=== PATIENT | female | born 1975 | race Caucasian/White ===

== ENCOUNTER 2025-04-23 07:26 | Inpatient (IN) | payer OTHER, SELFPAY ==
[2025-04-18 21:03] VITALS: BP 144/110
[2025-04-18 21:29] LABS: Hematocrit 36.8 % (37.0-47.0); Hemoglobin 12.2 g/dL (12.0-16.0); Mean Corp Hgb Conc. 33.2 g/dL (33.0-37.0); Mean Corpuscular Volume 86.0 fL (81.0-99.0); Nucleated Red Blood Cells % 0 %; Platelet Count 215 10^3/uL (130-400); Red Cell Dist. Width 13.9 % (11.5-14.5)
[2025-04-18 21:52] LABS: AST (SGOT) 712 U/L (14-36); Albumin 4.9 g/dl (3.5-5.0); Alkaline Phosphatase 345 U/L (38-126); Blood Urea Nitrogen 12 mg/dl (7-17); Calcium 9.8 mg/dl (8.4-10.2); Carbon Dioxide 19 mmol/L (22-30); Chloride 105 mmol/L (98-107); Glucose 125 mg/dl (70-99); Lipase 212 U/L (23-300); Potassium 4.4 mmol/L (3.5-5.1); Sodium 138 mmol/L (135-145); Total Protein 8.2 g/dl (6.3-8.2); eGFR > 60.00
[2025-04-18 22:09] LABS: ALT (SGPT) 1391 U/L (0-35)
--- NOTE | 2025-04-18 22:26 | ED.GENMED ---
History of Present Illness
General
Chief Complaint: Abdominal Pain
Source: patient
Exam Limitations: none
Time Seen by Provider: 04/18/25 22:03
History of Present Illness
History of Present Illness:
36yoF with history of recently diagnosed diabetes, prior cholecystectomy, and prior pancreatitis after ERCP presenting for evaluation of abdominal pain. She has been having intermittent epigastric pain for the past month. Pain became constant 2
days ago and is 'unrelenting.' Pain is worse after eating and laying down. Symptoms feel similar to when she's had pancreatitis in the past. She also is experiencing nausea and decreased appetite. She went to her PCP yesterday who ordered labs
and an ultrasound but she has not received the results of this yet. Patient denies any fevers, chills, vomiting, diarrhea, urinary symptoms, chest pain, shortness of breath.
Phy Exam
General Physical Exam
General Presentation: well appearing and no apparent distress
General Skin: warm and dry
General Habitus: normal
General Mental: alert
ENT Exam
ENT Exam: normocephalic
Cardiovascular Exam
Cardiovascular Exam: regular rate/rhythm
Pulmonary Exam
Pulmonary Exam: lungs clear, no respiratory distress, no rales, no crackles, no rhonchi and no wheezing
Gastrointestinal Exam
Gastrointestinal Exam: non tender, soft, non distended and other (No reproducible tenderness on exam)
Neurological Exam
Neurological Exam: alert
Husam Coma Scale
Eye Opening: Spontaneous
Verbal Response: Oriented
Motor Response: Obeys Commands
GCS Total Score: 15
Skin Exam
Skin Exam: normal color and warm/dry
Psychiatric Exam
Psychiatric Exam: normal mood/affect
Course
Orders/Labs/Results
Orders:
Orders
04/18/25 21:19
Complete Blood Count/With Diff Urgent
Comprehensive Metabolic Panel Urgent
Lactic Acid Urgent
Lipase Urgent
04/18/25 22:24
0.9% Sodium Chloride 1000 ml [Nss] 1,000 ml IV BOLUS
HYDROmorphone [Dilaudid] 0.5 mg IV NOW STA
Ondansetron Injectable [Zofran] 4 mg IV NOW STA
US Abdomen Complete/Upper Urgent
Comment:
Reason For Exam: epigastric pain, transaminitis
04/18/25 22:25
Electrocardiogram (*1) Urgent
Reason for Study: Abdominal Pain
EKG- Treatment ONCE
04/18/25 23:40
Prothrombin Time Urgent
Troponin I Urgent
Abnormal Lab Results
04/18/25
21:19
Hct 36.8 L %
(37.0-47.0)
MPV 10.8 H fL
(7.4-10.4)
Absolute Monos (auto) 0.7 H 10^3/uL
(0.1-0.6)
Monocytes % 10.1 H %
(1.7-9.3)
Carbon Dioxide 19 L mmol/L
(22-30)
Glucose 125 H mg/dl
(70-99)
Total Bilirubin 3.1 H mg/dl
(0.2-1.3)
AST 712 H* U/L
(14-36)
ALT 1391 H* U/L
(0-35)
Alkaline Phosphatase 345 H U/L
(38-126)
04/18/25 21:19
04/18/25 21:19
Vital Signs
Initial and Last Documented VS:
Initial Vital Signs
Temp Pulse Resp BP Pulse Ox
98.5 F 132 18 144/110 98
04/18/25 21:03 04/18/25 21:03 04/18/25 21:03 04/18/25 21:03 04/18/25 21:03
Last Documented Vital Signs
Temp Pulse Resp BP Pulse Ox
98 F 87 18 129/94 97
04/19/25 00:00 04/19/25 00:00 04/18/25 21:03 04/18/25 23:42 04/19/25 00:00
MDM/Problems Addressed
Differential Diagnosis Includes:
49yoF here with epigastric pain. Feels similar to prior bout of pancreatitis. Hx of prior cholecystectomy. HR 132 in triage. Temp normal. Abdominal exam relatively benign. Differential diagnosis includes but is not limited to: Pancreatitis, peptic
ulcer disease, choledocholithiasis, consider ACS
Initial ED plan: Labs obtained in triage. Transaminitis noted with AST 712, ALT 1391, and total bilirubin of 3.1. Lipase within normal limits. Will check troponin/EKG and upper abdominal ultrasound. IV Dilaudid, Zofran, and fluid bolus for
symptoms.
*Pulse Oximetry
SaO2: 98
Oxygen Mode of Delivery: Room air
Patient hypoxic: no (98%)
*EKG
Interpreted by ED Provider?: Yes
EKG Intrepretation Date: 04/19/25
Heart Rate: 94
Rate: normal
Rhythm: sinus
[place]: normal axis
Interval: normal interval
QRS Pattern: normal QRS
Ischemia: no ischemia
*Critical Care Note
Total Time (30-74mins, 75-104mins- exclusive of procedures): Not Applicable
Update Note
Update Note:
Ultrasound shows dilated CBD and mild intrahepatic ductal dilation. Concern for choledocholithiasis. Will admit for MRCP and GI consult.
ED Attending Note
-
Portions of this chart may have been created with voice recognition software.� Occasional wrong word or��sound alike� substitutions may have occurred due to the inherent limitations of voice recognition software.
Discharge Plan
Departure
Patient Disposition: Admit
Date of Disposition: 04/19/25
Time of Disposition: 00:00
Presentation/result/management discussed w/ accepting MD/DO: Hospitalist
Discharge Problem:
Epigastric abdominal pain, Transaminitis
Referrals:
Seun Moncada MD [Family Provider, Internal Medicine]
Interventions
Interventions:
*Risk Screen - Suicide Last Done: 04/18/25 23:57
*General Assessment Last Done: 04/18/25 21:03
*Neglect/Abuse Screening Last Done: 04/18/25 23:57
*ED- Fall Risk Assessment Last Done: 04/18/25 23:57
*ED COVID-19 Vaccine History Last Done: 04/18/25 23:57
MT-Rsywki-Dgstibwwfw Assessment Last Done: 04/18/25 23:57
Discharge Date and Time
Print Language: LUXEMBOURGISH
[2025-04-18 23:42] VITALS: BP 129/94
[2025-04-18] MEDS: NSS 1000 IV (23:46)
[2025-04-18] MEDS: DILAUDID 0.5 MG IV (23:47)
[2025-04-18] MEDS: ZOFRAN 4 MG IV (23:48)
[2025-04-18 23:57] VITALS: BMI 26.8
[2025-04-19] VITALS (8 sets, daily range): BP systolic 127–151; BP diastolic 83–100; BMI 25.9
[2025-04-19 00:08] LABS: INR 1.03; PT 14.0 Sec (11.4-14.6)
--- NOTE | 2025-04-19 00:18 | HPS.HSE ---
Family Physician
-
Family Physician: Seun Moncada
Chief Complaint
-
Epigastric abdominal pain
History of Present Illness
This is a 49-year-old female with history of cholecystitis status post cholecystectomy, history of ERCP was complicated by ERCP pancreatitis with development of pseudocyst about 12 years ago who presents to the emergency department with epigastric
abdominal pain that has been going on for about 1-1/2 months.
Patient reports intermittent epigastric pain that appears to radiate into her chest. She does note some indigestion. She denies any association with food intake. She reports nausea but no vomiting. She is not having any diarrhea. She denies any
melena. She denies feeling dizzy or lightheaded. She is not on any NSAIDs. She denies any Tylenol use. She stated that she was recently started on metformin less than 3 months ago for elevated blood glucose. She was also just started on
Protonix for current symptoms of indigestion. She denies any changes in color of her urine. She denies any icteric sclera or jaundice.
In the emergency department she was afebrile, blood pressure was 130/94 with a pulse of 87 she was satting 97% on room air.
CBC was unremarkable, electrolyte BUN/creatinine were normal. AST 712 ALT 09/15/1990, total bilirubin 3.1, alk phos present 300, lipase was normal.
Ultrasound shows dilated common bile duct measuring up to 16 mm with mild intrahepatic ductal dilation. No ductal stone was visualized however the distal ductal region and pancreatic head region were not well-visualized.
Medical History
Past Medical History
Past Medical History: Reports NIDDM
Past Surgical History: Reports Cholecystectomy
Social History
Tobacco: Non-smoker
Alcohol: None
Drug: None
Personal:
Living: With Family
Family History
Family History: Not pertinent
Allergies / Home Medications
Allergies reflects when Allergies were last updated in [facility].
Home Medications with original date entered in [facility]
Allergy/Medication List:
Allergies
Allergy/AdvReac Type Severity Reaction Status Date / Time
No Known Allergies Allergy Unverified 04/18/25 21:03
Protonix 40 mg tablet, 40 mg p.o. daily
Metformin 500 mg tablet, 500 mg p.o. daily
Review of Systems
-
Constitutional: Reports No Symptoms
EENT: Reports No Symptoms
Respiratory: Reports No Symptoms
Cardiac: Reports No Symptoms
Abdomen/GI: Reports Abdominal Pain and Nausea
: Reports No Symptoms
Musculoskeletal: Reports No Symptoms
Skin: Reports No Symptoms
Neurological: Reports No Symptoms
Endocrine: Reports No Symptoms
Hematologic/Lymphatic: Reports No Symptoms
Psych: Reports No Symptoms
Physical Exam
Vital Signs
Vital Signs
Temp Pulse Resp BP Pulse Ox
98 F 87 18 129/94 97
04/19/25 00:00 04/19/25 00:00 04/18/25 21:03 04/18/25 23:42 04/19/25 00:00
Physical Exam
General: Well Developed, Well Nourished and No Apparent Distress
HEENT: NormoCephalic, Moist mucous membranes and Atraumatic
Respiratory: Clear
Cardiac: S1/S2 and Regular Rhythm; No Murmur or Rub
GI: Soft, Non Tender, Non Distended and Normal Bowel Sounds; No Organomegaly
Rectal: Deferred by Provider
Musculoskeletal: No Clubbing, No Cyanosis and No Edema
Skin: No Rash
Neuro: Nonfocal/grossly intact
Psych: Calm
Laboratory Results
-
04/18/25 21:19
04/18/25 21:19
Laboratory Results
PT 14.0 Sec (11.4-14.6) 04/18/25 23:40
INR 1.03 04/18/25 23:40
Lactic Acid 1.0 mmol/L (0.7-2.0) 04/18/25 21:19
Total Bilirubin 3.1 mg/dl (0.2-1.3) H 04/18/25 21:19
AST 712 U/L (14-36) H* 04/18/25 21:19
ALT 1391 U/L (0-35) H* 04/18/25 21:19
Alkaline Phosphatase 345 U/L (38-126) H 04/18/25 21:19
Lipase 212 U/L (23-300) 04/18/25 21:19
Data Reviewed
-
Ultrasound: Report Reviewed by me
Lab Data: Labs Reviewed by me
Old Records: Reviewed
Impression/Plan
-
IMPRESSION:
49-year-old coming with epigastric abdominal pain and found to have elevated liver enzymes and bilirubin. She is status post cholecystectomy several years ago complicated by ERCP with pancreatitis and pseudocyst formation. She reports
approximately 1 month of intermittent epigastric pain, transaminitis here shows AST of 712 ALT of over 1000 and T. bili Milo of 3.1. Lipase was normal. She does not drink alcohol. Ultrasound shows significantly dilated common bile duct as well
as mild intrahepatic ductal dilation. No stones noted on that image.
PLAN:
Choledocholithiasis -likely has epigastric pain on the basis of this choledocholithiasis versus biliary stricture
-Admit to MedSurg
-Clear liquid diet for now
-Pain control and antiemetic
-Continue PPI
-Trend LFTs
-MRCP
-GI consult
Diabetes
-Holding metformin for now
-Sliding scale insulin ACHS
DVT prophylaxis�Lovenox subcu
CODE STATUS�full code
[2025-04-19 00:21] LABS: Troponin I < 0.012 ng/ml
--- NOTE | 2025-04-19 01:30 | PTCARENOTE ---
Patient arrived from ED via stretcher. Patient aaox3, able to make needs known. IV flushed and patent.
[2025-04-19 01:41] LABS: Glucose - Point of Care 94 mg/dl (70-99)
[2025-04-19] MEDS: NSS (PRESERVATIVE FREE) 8 ML IV (01:58)
[2025-04-19] MEDS: D5/0.45%NACL 1000 IV ×2 (01:58→19:25)
[2025-04-19] MEDS: PEPCID 20 MG IV (01:59)
[2025-04-19] MEDS: DILAUDID 0.5 MG IV ×4 (06:23→20:49)
[2025-04-19 06:37] LABS: Hematocrit 31.7 % (37.0-47.0); Hemoglobin 10.6 g/dL (12.0-16.0); Mean Corp Hgb Conc. 33.4 g/dL (33.0-37.0); Mean Corpuscular Volume 86.6 fL (81.0-99.0); Platelet Count 181 10^3/uL (130-400); Red Cell Dist. Width 13.8 % (11.5-14.5)
[2025-04-19 06:59] LABS: Glucose - Point of Care 121 mg/dl (70-99)
[2025-04-19 07:06] LABS: Blood Urea Nitrogen 7 mg/dl (7-17); Calcium 8.7 mg/dl (8.4-10.2); Carbon Dioxide 20 mmol/L (22-30); Chloride 108 mmol/L (98-107); Estimated Creatinine Clearance 79 ml/min; Glucose 114 mg/dl (70-99); Magnesium 1.7 mg/dl (1.6-2.3); Potassium 4.0 mmol/L (3.5-5.1); Sodium 138 mmol/L (135-145); eGFR > 60.00
[2025-04-19] MEDS: ATIVAN 0.5 MG PO (08:02)
--- NOTE | 2025-04-19 11:00 | CM ---
Addendum entered by Randal Sainz 04/19/25 13:00:
OBS status noted. OBS letter reviewed with the pt, pt declined to sign, has a copy. OBS letter placed on chart.
Original Note:
CM following re: discharge planning.
Reviewed pt's chart, met with pt and pt's at bedside.
Pt is a 49 year old female, admitted with primary dx of Abdominal pain.
Pt reports she lives with 2SH, 2 steps to enter, has 5 supportive children. Pt described herself as independent in all areas [employer], drives, works.
PCP: Seun Moncada
Pharmacy: [facility].
D/C plan: home with anticipated no needs. to transport at discharge.
CM will follow with discharge plan updates as hospitalization progresses
[2025-04-19] MEDS: NOVOLOG FLEXPEN-LOW RESISTANCE SC ×2 (11:52→12:13)
[2025-04-19 12:14] LABS: Glucose - Point of Care 109 mg/dl (70-99)
[2025-04-19] MEDS: PROTONIX 40 MG PO (12:14)
--- NOTE | 2025-04-19 13:11 | W.PN.UPDATE ---
Update Note
Progress Note Update
Hospitalist H&P from 0018 this morning. I have reviewed the patient's chart and independently evaluated her at the bedside. I spoke with her family and provided updates
49-year-old female with new NIDDM, history of ERCP induced pancreatitis C/B pseudocyst, s/p laparoscopic cholecystectomy that presented to the hospital yesterday with a complaint of epigastric pain over the last 1 month. Denies other associated
symptoms. Was recently diagnosed with new onset type 2 diabetes with A1c 7.2%. AFVSS here. Upon arrival had labs that showed AST 712, ALT 1370, total bilirubin 3.1, ALP 345. Underwent MRCP that demonstrated abrupt caliber transition of the CBD
in the superior aspect of the pancreatic head which is concerning for pancreatic carcinoma versus changes of chronic pancreatitis, also demonstrated lesions within the inferior posterior right lobe of the liver suspicious for metastases. Ultrasound
abdomen with Doppler negative for signs of Budd-Chiari.
AO x 4, NAD, no FND. Cardiopulmonary exam benign, abdomen benign. No edema, palpable pulses, no rashes or jaundice. MMM, EOMI, no scleral icterus.
Suspected pancreatic carcinoma. MRCP/abdomen MRI with abrupt transition of the CBD near pancreatic head, as well as signs of liver metastasis. Will consult oncology for further guidance on tissue biopsy. Suspect liver would be more feasible
target if lesion large enough to sample. Likely will need IR on board. Ultimately will need repeat microscopy, order CEA, CA 19-9, CA125
Acute liver injury. R factor near 12 though likely multi mixed picture with partial obstruction from pancreatic mass lesion as well as hepatocellular injury from metastasis. Ordered hepatitis panel for completeness, will follow-up results. Trend
LFTs and INR, avoid hepatotoxins
New NIDDM. A1c 7.2%. Suspect this may be related to primary pancreatic process such as neoplasm. Currently on ISS and Accu-Cheks here.
CLD for now
SQ Lovenox
Full code
Expected discharge >48 hours
--- NOTE | 2025-04-19 15:56 | CON.GI ---
Addendum entered and electronically signed by Delores Malone MD 04/19/25 17:22:
I saw and examined the patient.
The CONTINUOUS ABSORPTION PROCESS OPERATOR or PA's note was reviewed and I agree with the note.
Comment: 49-year-old female with history of choledocholithiasis status post ERCP 12 years ago at [facility], post ERCP pancreatitis and pseudocyst needing TPN at that time, history of cholecystectomy, new onset diabetes a month ago presenting with
complaints of dull epigastric discomfort intermittently in the last month but constantly in the last 3 days, no radiation. Some nausea but no vomiting. No GERD symptoms except on occasion, takes Tums as needed, no trouble swallowing. History of
chronic soft mushy/loose stool for several years, reports having colonoscopy a year ago or so at [facility] and unremarkable as per patient. She does report losing about 6 pounds in the last month. Social alcohol use, non-smoker.
In the ER, noted to have total bilirubin of 3.1, AST of 712, ALT of 3091 and alkaline phosphatase of 345
Abdominal ultrasound showing enlarged common duct to about 1.6 cm and possible mild intrahepatic biliary ductal dilation.
Subsequent noncontrast MRI/MRCP showing diffuse intrahepatic biliary ductal dilation, dilation of cystic duct remnant, common hepatic duct, superior aspect of common bile duct measuring up to 17 mm, abrupt transition of the common bile duct in the
superior aspect of the pancreatic head concerning for neoplasm. Lesion in the inferior posterior right lobe of the liver suspicious for hepatic metastatic lesion. Atrophy of the right kidney.
- Epigastric pain, elevated LFTs and MRI showing new biliary/pancreatic ductal dilation concerning for neoplasm
Will do MRI of the abdomen with and without contrast to evaluate it further
Noted labs sent for CEA, CA 19�9 and CA125
Oncology consulted
Will follow-up on the MRI and eventually will need EUS/FNA
Discussed with patient and .
Okay for clear liquid diet
Original Note:
Consultation
-
Date/Time Consultation Requested: 04/19/25 0130
Date/Time Consultation Performed: 04/19/25 1530
Requesting Provider: Dr. Ruelas
Performing Provider: Dr. Malone/MARIAN Griffiths
Reason for Consultation: abd pain, elevated LFTs
Medical History
Chief Complaint / HPI
Chief Complaint: abd pain
History of Present Illness:
49-year-old female with past medical history of choledocholithiasis status post ERCP 12 years ago at [facility] with subsequent pancreatitis and development of pseudocyst, followed by cholecystectomy, rare GERD, ocular hypertension newly diagnosed as
well as newly diagnosed diabetes with recently starting metformin approximately 1 month ago who is to the emergency room with approximately 6-week history of intermittent epigastric discomfort. The patient was found to have elevation of LFTs.
Combination of the symptoms we are asked to evaluate for the same. The patient states that prior to this she was otherwise healthy in between the episode of choledocholithiasis and ERCP with pseudocyst. She states during that time she was in the
hospital and required TPN. After that she had no imaging or follow-up. She never had any significant issues or pain. She states that intermittently she would have a mild epigastric discomfort on a rare occasion. She has rare GERD for which she
would use Tums alleviate symptoms. She also has 'self diagnosed IBS' she would get a nervous stomach and would have loose stools however this has been lifelong preceding her cholecystectomy. She had a colonoscopy 1 year ago with a physician
affiliated with [facility] and states it was normal with a repeat recommended in 10 years. She states that she had a routine eye exam and it was diagnosed that she had ocular hypertension. She states shortly thereafter she was diagnosed
with diabetes. States her blood sugars were never 'creeping up'. Just became elevated. She also has had intermittent epigastric discomfort that was 'deep', intermittent, did not radiate through to the back that has been ongoing for the past 6
weeks. He has lost approximately 6 pounds however it attributes this with changing her diet. She denies any fevers, chills, nausea, vomiting, melena, hematochezia, dysphagia or odynophagia. Denies any chest pain, shortness of breath, dizziness or
lightheadedness. She does not smoke. She drinks 1 or 2 alcoholic beverages on the weekends. Other than metformin she takes no other medications.
Past Medical History
Past Medical History: NIDDM and Other (ocular HT, choledocholithiasis, post ERCP pancreatitis, pancreatic pseudocyst)
Past Surgical History: Other (ERCP, cholcystectomy)
Social History
Tobacco: Non-Smoker
Alcohol: Occasional
Drug: None
Personal:
Living: With Family
Allergies / Home Medications
Allergy/AdvReac Type Severity Reaction Status Date / Time
No Known Allergies Allergy Unverified 04/18/25 21:03
Review of Systems
-
All other systems: A 12 pt ROS was Negative except as stated above in HPI
Vital Signs
Temp Pulse Resp BP Pulse Ox
98.7 F 85 16 139/96 100
04/19/25 07:40 04/19/25 07:40 04/19/25 07:40 04/19/25 07:40 04/19/25 07:45
Physical Exam
Exam
General: No Apparent Distress
HEENT: Anicteric
Neuro: AO x 3
Psych: Calm
Results
WBC 5.7 10^3/uL (4.8-10.8) 04/19/25 06:06
Hgb 10.6 g/dL (12.0-16.0) L 04/19/25 06:06
Hct 31.7 % (37.0-47.0) L 04/19/25 06:06
MCV 86.6 fL (81.0-99.0) 04/19/25 06:06
Plt Count 181 10^3/uL (130-400) 04/19/25 06:06
Absolute Neuts (auto) 4.3 10^3/uL (1.4-6.5) 04/18/25 21:19
PT 14.0 Sec (11.4-14.6) 04/18/25 23:40
INR 1.03 04/18/25 23:40
Sodium 138 mmol/L (135-145) 04/19/25 06:06
Potassium 4.0 mmol/L (3.5-5.1) 04/19/25 06:06
Chloride 108 mmol/L (98-107) H 04/19/25 06:06
Carbon Dioxide 20 mmol/L (22-30) L 04/19/25 06:06
BUN 7 mg/dl (7-17) 04/19/25 06:06
Creatinine 0.7 mg/dL (0.6-1.0) 04/19/25 06:06
Calcium 8.7 mg/dl (8.4-10.2) 04/19/25 06:06
Total Bilirubin 3.1 mg/dl (0.2-1.3) H 04/18/25 21:19
AST 712 U/L (14-36) H* 04/18/25 21:19
ALT 1391 U/L (0-35) H* 04/18/25 21:19
Alkaline Phosphatase 345 U/L (38-126) H 04/18/25 21:19
Lipase 212 U/L (23-300) 04/18/25 21:19
Hepatitis A IgM Ab Cancelled 04/19/25 09:00
Hepatitis A Ab Total Cancelled 04/19/25 09:00
Hep Bs Antibody Cancelled 04/19/25 09:00
Hep B Core Total Ab Cancelled 04/19/25 09:00
Hep B Core IgM Ab Cancelled 04/19/25 09:00
Hepatitis C Antibody Cancelled 04/19/25 09:00
Diagnostic Image Results:
Abd US:
IMPRESSION: Prior cholecystectomy. Enlarged common bile duct measuring at least 1.6 cm. Possible mild intrahepatic biliary tract dilatation.. Consider MRI/MRCP for more complete evaluation, especially for evaluation of the common bile duct and
pancreas.
Pancreas, abdominal aorta and IVC significantly obscured, most likely by overlying bowel gas.
Likely somewhat atrophic right kidney.
MRI abd without/MRCP:
IMPRESSION: Status post cholecystectomy.
There is diffuse intrahepatic bile duct dilation. Dilation of the cystic duct remnant, the common hepatic duct, and the superior aspect of the common bile duct, measuring up to 17 mm. Abrupt caliber transition of the common bile duct in the superior
aspect of the pancreatic head, and findings are highly concerning for pancreatic neoplasia/carcinoma. Differential consideration of changes from chronic pancreatitis, felt to be less likely.
For further evaluation, dedicated CT with pancreatic protocol could be considered, versus dedicated MRI of the abdomen/pancreas.
Lesion within the inferior posterior right lobe of the liver, suspicious for hepatic metastatic lesion. Lesion in the lateral segment of the left lobe of the liver, nonspecific.
Severe atrophy of the right kidney, probably chronic. Mild scarring involving the medial upper pole the left kidney.
Top normal lymph node in the portacaval space, nonspecific
US Abd dopplers:
Unremarkable low resistance waveform is seen in the hepatic artery.
Normal directional blood flow with normal caliber and pulsatility of the hepatic veins are seen.
Normal directional blood flow of the portal veins are seen although there is slow velocity of less than 15 cm/s.
Prior GI Procedures:
ERCP [facility] (12 yrs ago) records unavailable to us
Colonoscopy: 1 year ago (per patient was told 10 yr follow up) Records unavailable to us
Assessment / Plan
-
49-year-old female with past medical history of choledocholithiasis status post ERCP 12 years ago at [facility] with subsequent pancreatitis and development of pseudocyst, followed by cholecystectomy, rare GERD, ocular hypertension newly diagnosed as
well as newly diagnosed diabetes with recently starting metformin approximately 1 month ago who is to the emergency room with approximately 6-week history of intermittent epigastric discomfort. The patient was found to have elevation of LFTs.
Combination of the symptoms we are asked to evaluate for the same. WBC 5.7, hemoglobin 10.6, hematocrit 31.7, platelets 181, MCV 86.6, MCH 29.0, PT 14.0, INR 1.03, sodium 138, potassium 4.0, chloride 108, CO2 20, BUN 7, creatinine 0.7, glucose 114,
lactic acid 1.0, calcium 8.7, total bilirubin 3.1, AST 712, ALT 1391, alk phos 345, lipase 212, CEA pending, CA 19-9 pending, CA125 pending, viral hepatitis studies pending. Ultrasound of the abdomen showed enlarged common bile duct measuring 1.6
cm. Mild intrahepatic biliary tract dilatation. Consider MRI/MRCP. Pancreas, abdominal aorta and IVC obscured. MRI of the abdomen without contrast with MRCP shows diffuse intrahepatic bile duct dilation. Dilation of the cystic duct remnant, the
common hepatic duct, and the superior aspect of the common bile duct, measuring up to 17 mm. Abrupt caliber transition of the common bile duct in the superior aspect of the pancreatic head, and findings are highly concerning for pancreatic
neoplasia/carcinoma. Differential consideration of changes from chronic pancreatitis, felt to be less likely. Lesion within the inferior posterior right lobe of the liver, suspicious for hepatic metastatic lesion. Lesion in the lateral segment of
the left lobe of the liver, nonspecific.
Impression:
Abdominal pain
Elevated LFTs
Bile duct dilatation with abrupt cut in region of pancreatic head
Lesion in right lobe of liver and lateral left lobe liver
New onset DM
Plan:
-MRI Abd/pancreatic with contrast in am
-Will need EUS
-Await CEA, Ca19-9, Ca125
-LFTs in am
-Pain control
-Further recommendations to be forthcoming.
-
-
Thank you for consultation and allowing me to participate in the patient's care. Please call the motion picture set grip GI physician during the after hours with any questions or concerns.
[2025-04-19 16:34] LABS: Glucose - Point of Care 164 mg/dl (70-99)
[2025-04-19] MEDS: ZOFRAN 4 MG IV (17:28)
[2025-04-19] MEDS: LOVENOX 40 MG SC (17:36)
[2025-04-19] MEDS: NOVOLOG FLEXPEN-LOW RESISTANCE 1 UNITS SC (18:34)
[2025-04-19 19:19] LABS: CA 125 7.8 U/mL (0-35)
[2025-04-19 19:30] LABS: Hepatitis B Surface Antigen Negative (Negative)
[2025-04-19 19:47] LABS: Hepatitis A Antibody, Total Negative (Negative); Hepatitis C Antibody Negative (Negative)
[2025-04-19 21:10] LABS: Glucose - Point of Care 148 mg/dl (70-99)
[2025-04-20] MEDS: DILAUDID 0.5 MG IV ×5 (01:21→21:20)
[2025-04-20] MEDS: D5/0.45%NACL 1000 IV (03:15)
[2025-04-20 06:25] LABS: Hematocrit 31.7 % (37.0-47.0); Hemoglobin 10.6 g/dL (12.0-16.0); Mean Corp Hgb Conc. 33.4 g/dL (33.0-37.0); Mean Corpuscular Volume 85.9 fL (81.0-99.0); Nucleated Red Blood Cells % 0 %; Platelet Count 180 10^3/uL (130-400); Red Cell Dist. Width 13.7 % (11.5-14.5)
[2025-04-20 07:00] LABS: ALT (SGPT) 878 U/L (0-35); AST (SGOT) 295 U/L (14-36); Albumin 3.8 g/dl (3.5-5.0); Alkaline Phosphatase 301 U/L (38-126); Blood Urea Nitrogen 5 mg/dl (7-17); Calcium 9.3 mg/dl (8.4-10.2); Carbon Dioxide 24 mmol/L (22-30); Chloride 107 mmol/L (98-107); Estimated Creatinine Clearance 79 ml/min; Glucose 181 mg/dl (70-99); Potassium 3.9 mmol/L (3.5-5.1); Sodium 135 mmol/L (135-145); Total Protein 6.7 g/dl (6.3-8.2); eGFR > 60.00
[2025-04-20 07:20] VITALS: BP 121/87
[2025-04-20 07:50] LABS: Glucose - Point of Care 168 mg/dl (70-99)
[2025-04-20] MEDS: NOVOLOG FLEXPEN-LOW RESISTANCE 1 UNITS SC (08:54)
[2025-04-20] MEDS: PROTONIX 40 MG PO (08:54)
--- NOTE | 2025-04-20 10:38 | CON.ONC ---
Documented by User: Dorcas Chowdary MD, Resident 04/20/25 15:35
Consultation
-
Date Consultation Requested: 04/19/25
Date Consultation Performed: 04/20/25
Requesting Provider: Dr. Connor Russo
Performing Provider: Dr. Pato Ramirez
Reason for Consultation: Pancreatic mass, liver mass
Impression
Impression
Mid epigastric abdominal pain
Elevated LFTs
Bile duct dilatation with abrupt cut in region of pancreatic head
Lesion in right lobe of liver and lateral left lobe liver
New onset DM
Plan
Plan
-EUS possibly Wednesday - will d/c EUS if liver biopsy diagnostic
-IR has been consulted for biopsy of liver today - they will see if they can squeeze her in
-Pain control
-Follow LFTs - currently downtrending
-CA 125 7.8 (-), Carcinoembryonic and Ca 19-9 antigen pending
If GI is okay with discharging her for f/u in the outpatient setting for EUS biopsies, from heme/onc standpoint okay to go home after liver biopsy with IR.
Patient History
History of Present Illness
49-year-old female with past medical history of new onset diabetes (diagnosed in the last few weeks), cholecystitis status post cholecystectomy, history of ERCP complicated by pancreatitis with development of pseudocyst about 12 years ago presented
to the ER with midepigastric abdominal pain that had been ongoing for the last few months. She saw her PCP about it, got lab work done and was diagnosed with new onset diabetes and started on a PPI. Over the last few days, the pain became constant
and unrelenting which prompted her to come to the ER. The pain was worse after eating or laying down and she was concerned for recurrence of her pancreatitis. She has had some recent weight loss after starting the metformin and lifestyle
modification with new diagnosis of diabetes, however denied any fevers, chills, night sweats, nausea, vomiting, chest pain, shortness of breath. She did a colonoscopy 1 year ago at [facility] which she stated was normal and was told for repeat in 10
years.
In the ED, initially she was tachycardic with elevated blood pressure, however repeat vital she was afebrile and vital signs stable. WBC 6.6, hemoglobin stable 12.12, creatinine 0.9, AST 712, ALT 1391, total bilirubin 3.1. Lipase was within normal
limits. Abdominal ultrasound revealed dilated common bile duct measuring up to 16 mm with mild intra ductal dilation. She was admitted for choledocholithiasis versus biliary stricture and started on fluids. GI was consulted and MRCP was ordered.
MRCP revealed an abrupt caliber transition of the common bile duct in the superior aspect of the pancreatic head, and findings are highly concerning for pancreatic neoplasia/carcinoma. Differential consideration of changes from chronic pancreatitis,
felt to be less likely. There was also noted to be a lesion in the inferior posterior right lobe of the liver suspicious for a hepatic metastatic lesion. An abdominal MRI was subsequently ordered which revealed a 4.3 x 2.0 cm hypoenhancing mass
within the pancreatic head/body which is favored to represent pancreatic malignancy. There was also a 2.1 cm peripheral enhancing lesion within the inferior right hepatic lobe consistent with hepatic metastasis.
Carcinoembryonic and tension, CA 19-9 antigen and CA125 antigen were ordered. Hematology oncology was consulted for further evaluation of pancreatic and liver masses.
Past-Medical/Surgical History
Past medical history: ERCP pancreatitis, cholecystitis status post cholecystectomy, new onset diabetes
Past surgical history: Cholecystectomy, ERCP
Family history: Maternal grandmother pancreatic cancer diagnosed in her 80s
Patient Medication
�Medication �Instructions �Recorded �Confirmed �Last Taken �Type
alprazolam 0.25 mg tablet (Xanax) 0.25 mg PO BID PRN anxiety 04/19/25 04/19/25 Unknown History
Active Medications
Generic Name Dose Route Start Last Admin
Trade Name Freq PRN Reason Stop Dose Admin
Acetaminophen 650 mg 04/19/25 01:30
Acetaminophen 325 Mg Tablet PO 05/17/25 01:29
Q4HPRN PRN
mild pain/ALFARO/temp> 100.4F
Alprazolam 0.25 mg 04/19/25 15:56
Alprazolam 0.25 Mg Tablet PO 05/17/25 15:55
BIDPRN PRN
anxiety
Bisacodyl 10 mg 04/19/25 01:30
Bisacodyl 10 Mg Rectal Suppository RECTAL 05/17/25 01:29
[id number] PRN
constipation
Dextrose 12.5 grams 04/19/25 02:00
Dextrose 50% (0.5 Grams/Ml) 50 Ml Syringe IV 05/17/25 01:59
[id number] PRN
hypoglycemia
Protocol
Enoxaparin Sodium 40 mg 04/19/25 18:00 04/19/25 17:36
Enoxaparin Sodium 40 Mg/0.4 Ml Syringe SC 05/17/25 17:59 40 mg
QPM CLARIBEL Administration
Glucagon 1 mg 04/19/25 02:00
Glucagon 1 Mg Vial IM 05/17/25 01:59
PRN PRN
hypoglycemia - no IV access
Protocol
Hydromorphone HCl 0.5 mg 04/19/25 01:30 04/20/25 06:23
Hydromorphone 0.5 Mg/0.5 Ml Syringe IV 05/03/25 01:29 0.5 mg
Q4HPRN PRN Administration
severe pain
Insulin Aspart 0 units 04/19/25 07:30 04/20/25 08:54
Insulin Aspart Low Resistance 300 Units/3 Ml Pen.Injctr SC 05/17/25 07:29 1 units
AC CLARIBEL Administration
Protocol
Ondansetron HCl 4 mg 04/19/25 01:30 04/19/25 17:28
Ondansetron 4 Mg/2 Ml Vial IV 05/17/25 01:29 4 mg
Q6HPRN PRN Administration
nausea and vomiting
Oxycodone HCl 5 mg 04/19/25 01:30
Oxycodone 5 Mg Regular Release Tablet PO 05/03/25 01:29
Q4HPRN PRN
moderate pain
Pantoprazole Sodium 40 mg 04/19/25 08:00 04/20/25 08:54
Pantoprazole 40 Mg Delayed Release Tablet PO 05/17/25 07:59 40 mg
DAILY CLARIBEL Administration
Polyethylene Glycol 17 grams 04/19/25 01:30
Polyethylene Glycol Powder 17 Grams Packet PO 05/17/25 01:29
DAILYPRN PRN
constipation
Senna/Docusate Sodium 1 tablet 04/19/25 01:30
Docusate W/Senna (Nunu-Colace) Tablet PO 05/17/25 01:29
BIDPRN PRN
constipation
Sodium Chloride 0 flush 04/19/25 02:00
Sodium Chloride 0.9% (Flush) Syringe IV 05/17/25 01:59
PER PROTOCOL CALRIBEL
Review of Systems
-
History Source: Patient
EENT: Reports No Symptoms
Respiratory: Reports No Symptoms
Cardiac: Reports No Symptoms
GI: Reports Abdominal Pain
: Reports No Symptoms
Musculoskeletal: Reports No Symptoms
Neuro: Reports No Symptoms
Physical Exam
-
General: No Apparent Distress and Comfortable
Cardiology: Normal Sinus Rhythm, S1 and S2
Pulmonary: Clear
GI: Soft, Normal Bowel Sounds and Other (slight tenderness with palpation in mid-epigastric region)
Musculoskeletal: No Cyanosis and No Edema
Skin: Warm and Dry
Psych: Calm
Labs
Lab Results
WBC 6.1 10^3/uL (4.8-10.8) 04/20/25 06:14
RBC 3.69 10^6/uL (4.20-5.40) L 04/20/25 06:14
Hgb 10.6 g/dL (12.0-16.0) L 04/20/25 06:14
Hct 31.7 % (37.0-47.0) L 04/20/25 06:14
MCV 85.9 fL (81.0-99.0) 04/20/25 06:14
MCH 28.7 pg (27.0-31.0) 04/20/25 06:14
MCHC 33.4 g/dL (33.0-37.0) 04/20/25 06:14
RDW 13.7 % (11.5-14.5) 04/20/25 06:14
Plt Count 180 10^3/uL (130-400) 04/20/25 06:14
MPV 11.1 fL (7.4-10.4) H 04/20/25 06:14
Abs Immat Gran (auto) 0.0 10^3/uL (0-0.05) 04/20/25 06:14
Absolute Neuts (auto) 4.5 10^3/uL (1.4-6.5) 04/20/25 06:14
Absolute Lymphs (auto) 0.9 10^3/uL (1.2-3.4) L 04/20/25 06:14
Absolute Monos (auto) 0.6 10^3/uL (0.1-0.6) 04/20/25 06:14
Absolute Eos (auto) 0.1 10^3/uL (0-0.7) 04/20/25 06:14
Absolute Basos (auto) 0.0 10^3/uL (0-0.2) 04/20/25 06:14
Immature Gran % 0.3 % (0-0.5) 04/20/25 06:14
Neutrophils % 73.3 % (42.2-75.2) 04/20/25 06:14
Lymphocytes % 14.1 % (20.5-51.1) L 04/20/25 06:14
Monocytes % 10.0 % (1.7-9.3) H 04/20/25 06:14
Eosinophils % 2.0 % (0-6) 04/20/25 06:14
Basophils % 0.3 % (0-2) 04/20/25 06:14
Creatinine 0.7 mg/dL (0.6-1.0) 04/20/25 06:14
Vital Signs
Vital Signs
Temp Pulse Resp BP Pulse Ox
98.5 F 84 16 121/87 98
04/20/25 07:20 04/20/25 07:20 04/20/25 07:20 04/20/25 07:20 04/20/25 07:20

Documented by User: Pato Ramirez MD 04/20/25 16:43
Plan
Plan
-EUS possibly Wednesday - will d/c EUS if liver biopsy diagnostic
-IR has been consulted for biopsy of liver today - they will see if they can squeeze her in
-Pain control
-Follow LFTs - currently downtrending
-CA 125 7.8 (-), Carcinoembryonic and Ca 19-9 antigen pending
If GI is okay with discharging her for f/u in the outpatient setting for EUS biopsies, from heme/onc standpoint okay to go home after liver biopsy with IR.
04/20: Unfortunate picture of apparent pancreatic cancer, most likely stage IV with liver involvement. She has had a suspicious liver lesion biopsy this afternoon. As such, I doubt if an EUS will add much, although obviously we will have to wait for
the results of the liver biopsy. Nevertheless, her bilirubin is minimally elevated, and it does appear that the common duct is dilated, so will defer to GI, it appears that she may need ERCP with possible stent placement. I discussed all of these
findings with her and her . We discussed in very general terms the possibility of chemotherapy. However, I emphasized that no firm plans can be made until the results of the biopsy have returned. We will follow-up in the office, but it
will be important for GI to coordinate a possible ERCP.
--- NOTE | 2025-04-20 11:40 | W.PN.HOSP.TC ---
Today's Communication/Plan
-
IR liver biopsy today
Trend LFTs
Resume diet following biopsy
Assessment / Plan
Assessment / Plan
#Pancreas mass with likely liver met
#Acute liver injury, hepatocellular dominant
-Presented with ALI, epigastric pain, recent weight loss of 6 pounds in multiple week
-MRI/MRCP with and without contrast showing pancreatic head mass and likely liver metastasis
-GI and oncology following, planning for liver biopsy today for tissue diagnosis
-If liver biopsy does not achieve diagnosis may need EUS/ERCP with biopsy
-LFTs currently downtrending with supportive care, symptomatically stable
-Follow-up liver biopsy results and plan molecular studies (K-oriana, p53, SMAD, others)
-Will likely need OP staging with PET/CT, possible brain MRI
-N.p.o. pending liver biopsy today
-Trend LFTs and avoid hepatotoxins
#NIDDM
-A1c 7.2%, recent diagnosis that was puzzling to OP providers
-Suspect that this is related to pancreatic mass and parenchymal destruction
-Home regimen includes metformin, transition to ISS with Accu-Cheks here
#Anxiety
-Continue with home Xanax as needed
Diet: N.p.o. pending liver biopsy
DVT prophylaxis: SQ Lovenox
CODE STATUS: Full code
Disposition: Home when medically stable
Anticipated Discharge: 24 - 48 hours
Subjective/Interval History
-
Date of Service: April 20, 2025
Seen and examined at bedside. No acute events per overnight. AFVSS this morning
MRI with contrast redemonstrated likely pancreatic mass. LFTs downtrending
Patient otherwise denies complaints. Reasonably anxious
Objective Data
-
Labs:
Laboratory Results
04/20/25
06:14
WBC 6.1
Hgb 10.6 L
Hct 31.7 L
Plt Count 180
Sodium 135
Potassium 3.9
Chloride 107
Carbon Dioxide 24
BUN 5 L
Creatinine 0.7
Glucose 181 H
Calcium 9.3
Total Bilirubin 2.9 H
AST 295 H
ALT 878 H*
Alkaline Phosphatase 301 H
Vital Signs:
Vital Signs
Temp Pulse Resp BP Pulse Ox
98.5 F 84 16 121/87 98
04/20/25 07:20 04/20/25 07:20 04/20/25 07:20 04/20/25 07:20 04/20/25 07:20
I&O
04/19/25 04/20/25 04/21/25
06:59 06:59 06:59
Intake Total 480 / 480 2526 / 2526 240 / 240
Balance 480 / 480 2526 / 2526 240 / 240
Review of Systems
-
History Source: Patient
All other systems: Reviewed and negative
Physical Exam
-
General: Well Developed, No Apparent Distress and Comfortable
HEENT: Normocephalic, Atraumatic, Moist Mucous Membranes and Anicteric
Respiratory: Clear to Auscultation and Non Labored Respirations; Negative Accessory Resp Muscle Use
Cardiac: Regular Rhythm and S1/S2; Negative Murmur, Rub or Gallop
GI: Soft, Nontender, Nondistended and Normal Bowel Sounds
Musculoskeletal: No Clubbing, No Cyanosis and No Edema
Skin: Warm and Dry; Negative Rash
Neuro: AO x 3 and Nonfocal/Grossly Intact; Negative Central Nerve's Intact
Psych: Calm
Data Reviewed
-
Labs: Labs Reviewed by me and Discussed with Patient
--- NOTE | 2025-04-20 12:17 | W.PN.GI.CBS2 ---
Today's Communication / Plan
-
oncology eval
IR eval bx of liver lesion
EUS/ERCP next week with
Assessment / Plan
-
49-year-old female with history of choledocholithiasis status post ERCP 12 years ago at [facility], post ERCP pancreatitis and pseudocyst needing TPN at that time, history of cholecystectomy, new onset diabetes a month ago presenting with complaints of
dull epigastric discomfort intermittently in the last month but constantly in the last 3 days, no radiation. Some nausea but no vomiting. No GERD symptoms except on occasion, takes Tums as needed, no trouble swallowing. History of chronic soft
mushy/loose stool for several years, reports having colonoscopy a year ago or so at [place] and unremarkable as per patient. She does report losing about 6 pounds in the last month. Social alcohol use, non-smoker.
In the ER, noted to have total bilirubin of 3.1, AST of 712, ALT of 3091 and alkaline phosphatase of 345
Abdominal ultrasound showing enlarged common duct to about 1.6 cm and possible mild intrahepatic biliary ductal dilation.
Subsequent noncontrast MRI/MRCP showing diffuse intrahepatic biliary ductal dilation, dilation of cystic duct remnant, common hepatic duct, superior aspect of common bile duct measuring up to 17 mm, abrupt transition of the common bile duct in the
superior aspect of the pancreatic head concerning for neoplasm. Lesion in the inferior posterior right lobe of the liver suspicious for hepatic metastatic lesion. Atrophy of the right kidney.
- Epigastric pain, elevated LFTs and MRI showing new biliary/pancreatic ductal dilation concerning for neoplasm
MRI abd with contrast 04/19/2025
IMPRESSION:
There is a 4.3 x 2.0 cm hypoenhancing mass within the pancreatic head/body which is favored to represent pancreatic malignancy (adenocarcinoma). Recommend EUS/FNA for further evaluation.
There is a 2.1 cm peripheral enhancing lesion within the inferior right hepatic lobe consistent with hepatic metastasis. There are 2 smaller additional foci of diffusion hyperintense signal within the right hepatic lobe which are concerning for
additional metastatic foci, however there are no definite lesions identified on postcontrast imaging.
- Oncology eval. oncology recommendation on IR guided biopsy of liver lesion
-CEA, CA 19�9 and CA125 Pending
- EUS/ERCP with decompression with Dr. Matias next or Wednesday
-Okay to continue liquid diet over the weekend
- trend LFT
Total Time Spent with Patient (in minutes): 35
Subjective
Subjective
Date of Service: April 20, 2025
Mild abdominal discomfort. Denies any nausea or vomiting
Objective
Data Reviewed
Laboratory Data:
Laboratory Results
04/20/25 06:14
04/20/25 06:14
Laboratory Results
PT 14.0 Sec (11.4-14.6) 04/18/25 23:40
INR 1.03 04/18/25 23:40
Magnesium 1.7 mg/dl (1.6-2.3) 04/19/25 06:06
Total Bilirubin 2.9 mg/dl (0.2-1.3) H 04/20/25 06:14
AST 295 U/L (14-36) H 04/20/25 06:14
ALT 878 U/L (0-35) H* 04/20/25 06:14
Alkaline Phosphatase 301 U/L (38-126) H 04/20/25 06:14
Lipase 212 U/L (23-300) 04/18/25 21:19
Vital Signs and I&O:
Vital Signs
Temp Pulse Resp BP Pulse Ox
98.5 F 84 16 121/87 98
04/20/25 07:20 04/20/25 07:20 04/20/25 07:20 04/20/25 07:20 04/20/25 07:20
I&O
04/19/25 04/20/25 04/21/25
06:59 06:59 06:59
Intake Total 480 / 480 2526 / 2526 240 / 240
Balance 480 / 480 2526 / 2526 240 / 240
Physical Exam
Physical Exam
GI: Soft, Non Distended and Non Tender
[2025-04-20 12:48] LABS: Glucose - Point of Care 139 mg/dl (70-99)
[2025-04-20] MEDS: NOVOLOG FLEXPEN-LOW RESISTANCE SC ×2 (12:48→17:14)
[2025-04-20] MEDS: XANAX 0.25 MG PO (13:26)
[2025-04-20 13:50] VITALS: BP 149/94; BP_SYST 84
[2025-04-20 15:55] VITALS: BP 129/86; BP_SYST 82
[2025-04-20 16:30] VITALS: BP 147/89
[2025-04-20 17:00] VITALS: BP 139/84
[2025-04-20] MEDS: LOVENOX 40 MG SC (17:01)
[2025-04-20 17:09] LABS: Glucose - Point of Care 137 mg/dl (70-99)
--- NOTE | 2025-04-20 17:31 | PTCARENOTE ---
Pt received back s/p liver biopsy in [facility]. AAOx3. VSS. RUQ of abdomen with band-aid over access site. CDI. No sign of bleeding/hematoma at site. Pt educated about bedrest orders with bathroom privileges. Bedrest over at 1900. Pt resting in bed, call
booker in reach.
[2025-04-20 19:32] LABS: CEA 8.84 ng/ml
[2025-04-20] MEDS: FLUSH (NSS) 2 FLUSH IV (21:20)
[2025-04-20 21:26] LABS: Glucose - Point of Care 119 mg/dl (70-99)
[2025-04-20 23:00] VITALS: BP 123/88
[2025-04-21] MEDS: DILAUDID 0.5 MG IV (03:17)
[2025-04-21] MEDS: FLUSH (NSS) 2 FLUSH IV ×2 (03:18→03:30)
[2025-04-21] MEDS: ZOFRAN 4 MG IV (03:30)
[2025-04-21 07:04] LABS: Hematocrit 34.7 % (37.0-47.0); Hemoglobin 11.6 g/dL (12.0-16.0); Mean Corp Hgb Conc. 33.4 g/dL (33.0-37.0); Mean Corpuscular Volume 86.8 fL (81.0-99.0); Nucleated Red Blood Cells % 0 %; Platelet Count 215 10^3/uL (130-400); Red Cell Dist. Width 13.9 % (11.5-14.5)
[2025-04-21 07:12] LABS: INR 1.03; PT 13.8 Sec (11.4-14.6)
[2025-04-21] MEDS: MIRALAX 17 GRAMS PO (07:14)
[2025-04-21] MEDS: PROTONIX 40 MG PO (07:14)
[2025-04-21] MEDS: TYLENOL 650 MG PO ×3 (07:18→18:07)
[2025-04-21 07:21] VITALS: BP 122/95
[2025-04-21 07:47] LABS: AST (SGOT) 304 U/L (14-36); Albumin 4.5 g/dl (3.5-5.0); Alkaline Phosphatase 383 U/L (38-126); Blood Urea Nitrogen 6 mg/dl (7-17); Calcium 9.6 mg/dl (8.4-10.2); Carbon Dioxide 22 mmol/L (22-30); Chloride 107 mmol/L (98-107); Estimated Creatinine Clearance 79 ml/min; Glucose 119 mg/dl (70-99); Potassium 4.5 mmol/L (3.5-5.1); Sodium 138 mmol/L (135-145); Total Protein 7.7 g/dl (6.3-8.2); eGFR > 60.00
[2025-04-21 07:49] LABS: Glucose - Point of Care 125 mg/dl (70-99)
[2025-04-21 08:01] LABS: ALT (SGPT) 877 U/L (0-35)
[2025-04-21] MEDS: NOVOLOG FLEXPEN-LOW RESISTANCE SC ×2 (08:03→12:19)
[2025-04-21] MEDS: XANAX 0.25 MG PO (08:23)
--- NOTE | 2025-04-21 10:22 | W.PN.HOSP.TC ---
Today's Communication/Plan
-
Follow-up liver biopsy pathology
Plan for ERCP/EUS with biopsy Wednesday
LRD today, FLD tomorrow, n.p.o. Wednesday night
Trend LFTs
Assessment / Plan
Assessment / Plan
#Pancreas mass with likely liver met
#Acute liver injury, hepatocellular dominant
-Presented with ALI, epigastric pain, recent weight loss of 6 pounds in multiple week
-MRI/MRCP with and without contrast showing pancreatic head mass and likely liver metastasis
-GI and oncology following, s/p liver biopsy on 04/20, pathology pending
-LFTs currently downtrending with supportive care, symptomatically stable
-Follow-up liver biopsy results and plan molecular studies (K-oriana, p53, SMAD, others)
-Plan for ERCP/EUS with biopsy on Wednesday, full liquid diet on 04/22 with NPO at midnight
-Will likely need OP staging with PET/CT, possible brain MRI
-Trend LFTs and avoid hepatotoxins
#NIDDM
-A1c 7.2%, recent diagnosis that was puzzling to OP providers
-Suspect that this is related to pancreatic mass and parenchymal destruction
-Home regimen includes metformin, transition to ISS with Accu-Cheks here
#Anxiety
-Continue with home Xanax as needed
Diet: LRD today, FLD 04/22 with NPO @ [facility]
DVT prophylaxis: SQ Lovenox
CODE STATUS: Full code
Disposition: Home when medically stable
Anticipated Discharge: > 48 hours
Subjective/Interval History
-
Date of Service: April 21, 2025
Seen and examined at the bedside. No acute events reported overnight. AFVSS this morning
S/p liver biopsy with IR yesterday, hemoglobin stable, minimal pain today
Denies new complaints as of this morning
Objective Data
-
Labs:
Laboratory Results
04/21/25
06:49
WBC 8.0
Hgb 11.6 L
Hct 34.7 L
Plt Count 215
PT 13.8
INR 1.03
Sodium 138
Potassium 4.5
Chloride 107
Carbon Dioxide 22
BUN 6 L
Creatinine 0.7
Glucose 119 H
Calcium 9.6
Total Bilirubin 3.9 H
AST 304 H
ALT 877 H*
Alkaline Phosphatase 383 H
Vital Signs:
Vital Signs
Temp Pulse Resp BP Pulse Ox
98.1 F 96 16 122/95 97
04/21/25 07:21 04/21/25 07:21 04/21/25 07:21 04/21/25 07:21 04/21/25 07:21
I&O
04/20/25 04/21/25 04/22/25
06:59 06:59 06:59
Intake Total 2526 / 2526 720 / 720
Balance 2526 / 2526 720 / 720
Review of Systems
-
History Source: Patient
All other systems: Reviewed and negative
Physical Exam
-
General: Well Developed, No Apparent Distress and Comfortable
HEENT: Normocephalic, Atraumatic, Moist Mucous Membranes and Anicteric
Respiratory: Clear to Auscultation and Non Labored Respirations; Negative Accessory Resp Muscle Use
Cardiac: Regular Rhythm and S1/S2; Negative Murmur, Rub or Gallop
GI: Soft, Nontender, Nondistended and Normal Bowel Sounds
Musculoskeletal: No Clubbing, No Cyanosis and No Edema
Skin: Warm and Dry; Negative Rash
Neuro: AO x 3, Nonfocal/Grossly Intact and Central Nerve's Intact
Psych: Calm
Data Reviewed
-
Labs: Labs Reviewed by me, Discussed with Physician (GI, oncology) and Discussed with Patient
[2025-04-21 12:17] LABS: Glucose - Point of Care 127 mg/dl (70-99)
[2025-04-21 15:05] VITALS: BP 138/88
[2025-04-21] MEDS: SENOKOT-S 1 TABLET PO ×2 (15:42→21:26)
--- NOTE | 2025-04-21 15:58 | PTCARENOTE ---
Pt notes that pain is better controlled today. Still unable to have BM after miralax - Senokot given. Pt is eating/drinking. Pt pleasant/conversive. at bedside.
[2025-04-21 17:54] LABS: Glucose - Point of Care 157 mg/dl (70-99)
[2025-04-21] MEDS: LOVENOX 40 MG SC (18:07)
[2025-04-21] MEDS: NOVOLOG FLEXPEN-LOW RESISTANCE 1 UNITS SC (18:11)
[2025-04-21] MEDS: ROXICODONE 5 MG PO (21:25)
[2025-04-21 21:50] LABS: Glucose - Point of Care 134 mg/dl (70-99)
[2025-04-21 23:27] VITALS: BP 109/71
[2025-04-22] MEDS: DILAUDID 0.5 MG IV ×3 (01:10→21:02)
[2025-04-22] MEDS: FLUSH (NSS) 3 FLUSH IV (01:10)
[2025-04-22] MEDS: ZOFRAN 4 MG IV ×2 (01:14→15:50)
[2025-04-22] MEDS: FLUSH (NSS) 2 FLUSH IV (06:01)
[2025-04-22 06:34] LABS: Hematocrit 31.9 % (37.0-47.0); Hemoglobin 10.9 g/dL (12.0-16.0); Mean Corp Hgb Conc. 34.2 g/dL (33.0-37.0); Mean Corpuscular Volume 86.0 fL (81.0-99.0); Nucleated Red Blood Cells % 0 %; Platelet Count 201 10^3/uL (130-400); Red Cell Dist. Width 14.0 % (11.5-14.5)
[2025-04-22 07:06] LABS: Glucose - Point of Care 106 mg/dl (70-99)
[2025-04-22 07:25] VITALS: BP 123/78
[2025-04-22] MEDS: NOVOLOG FLEXPEN-LOW RESISTANCE SC ×3 (07:39→16:57)
[2025-04-22 07:58] LABS: ALT (SGPT) 736 U/L (0-35); AST (SGOT) 265 U/L (14-36); Albumin 4.0 g/dl (3.5-5.0); Alkaline Phosphatase 392 U/L (38-126); Blood Urea Nitrogen 7 mg/dl (7-17); Calcium 9.2 mg/dl (8.4-10.2); Carbon Dioxide 24 mmol/L (22-30); Chloride 107 mmol/L (98-107); Estimated Creatinine Clearance 79 ml/min; Glucose 113 mg/dl (70-99); Potassium 3.9 mmol/L (3.5-5.1); Sodium 137 mmol/L (135-145); Total Protein 7.0 g/dl (6.3-8.2); eGFR > 60.00
[2025-04-22] MEDS: PROTONIX 40 MG PO (09:21)
[2025-04-22] MEDS: MIRALAX 17 GRAMS PO (09:28)
--- NOTE | 2025-04-22 10:44 | W.PN.GI.CBS2 ---
Today's Communication / Plan
-
EUS/ERCP with Dr. Matias tomorrow
N.p.o. after midnight
Assessment / Plan
-
49-year-old female with history of choledocholithiasis status post ERCP 12 years ago at [facility], post ERCP pancreatitis and pseudocyst needing TPN at that time, history of cholecystectomy, new onset diabetes a month ago presenting with complaints of
dull epigastric discomfort intermittently in the last month but constantly in the last 3 days, no radiation. Some nausea but no vomiting. No GERD symptoms except on occasion, takes Tums as needed, no trouble swallowing. History of chronic soft
mushy/loose stool for several years, reports having colonoscopy a year ago or so at [place] and unremarkable as per patient. She does report losing about 6 pounds in the last month. Social alcohol use, non-smoker.
In the ER, noted to have total bilirubin of 3.1, AST of 712, ALT of 3091 and alkaline phosphatase of 345
Abdominal ultrasound showing enlarged common duct to about 1.6 cm and possible mild intrahepatic biliary ductal dilation.
Subsequent noncontrast MRI/MRCP showing diffuse intrahepatic biliary ductal dilation, dilation of cystic duct remnant, common hepatic duct, superior aspect of common bile duct measuring up to 17 mm, abrupt transition of the common bile duct in the
superior aspect of the pancreatic head concerning for neoplasm. Lesion in the inferior posterior right lobe of the liver suspicious for hepatic metastatic lesion. Atrophy of the right kidney.
- Epigastric pain, elevated LFTs and MRI showing new biliary/pancreatic ductal dilation concerning for neoplasm
MRI abd with contrast 04/19/2025
IMPRESSION:
There is a 4.3 x 2.0 cm hypoenhancing mass within the pancreatic head/body which is favored to represent pancreatic malignancy (adenocarcinoma). Recommend EUS/FNA for further evaluation.
There is a 2.1 cm peripheral enhancing lesion within the inferior right hepatic lobe consistent with hepatic metastasis. There are 2 smaller additional foci of diffusion hyperintense signal within the right hepatic lobe which are concerning for
additional metastatic foci, however there are no definite lesions identified on postcontrast imaging.
- s/p liver biopsy. Path pending
-CEA elevated, CA 19�9 -pending
- EUS/ERCP with biliary decompression with Dr. Matias tomorrow
-N.p.o. after midnight. Hold Lovenox
- trend LFT
- Follow-up with oncology-patient prefers to follow-up with [place] [facility]ology
Total Time Spent with Patient (in minutes): 35
Subjective
Subjective
Date of Service: April 22, 2025
Right upper quadrant discomfort. Tolerating diet
Objective
Data Reviewed
Laboratory Data:
Laboratory Results
04/22/25 05:51
04/22/25 05:51
Laboratory Results
PT 13.8 Sec (11.4-14.6) 04/21/25 06:49
INR 1.03 04/21/25 06:49
Magnesium 1.7 mg/dl (1.6-2.3) 04/19/25 06:06
Total Bilirubin 3.9 mg/dl (0.2-1.3) H 04/22/25 05:51
AST 265 U/L (14-36) H 04/22/25 05:51
ALT 736 U/L (0-35) H* 04/22/25 05:51
Alkaline Phosphatase 392 U/L (38-126) H 04/22/25 05:51
Lipase 212 U/L (23-300) 04/18/25 21:19
Vital Signs and I&O:
Vital Signs
Temp Pulse Resp BP Pulse Ox
97.7 F 77 16 123/78 96
04/22/25 07:25 04/22/25 07:25 04/22/25 07:25 04/22/25 07:25 04/22/25 07:25
I&O
04/21/25 04/22/25 04/23/25
06:59 06:59 06:59
Intake Total 720 / 720 1440 / 1440 1140 / 1140
Balance 720 / 720 1440 / 1440 1140 / 1140
Physical Exam
Physical Exam
GI: Soft, Non Distended and Tender (Mild right upper quadrant tenderness)
--- NOTE | 2025-04-22 11:28 | W.PN.HOSP.TC ---
Today's Communication/Plan
-
see A/P
Assessment / Plan
Assessment / Plan
# Pancreatic mass with likely liver met
# Acute liver injury, hepatocellular dominant
Presented with ALI, epigastric pain, recent weight loss of 6 pounds in multiple week
MRI/MRCP with and without contrast showed pancreatic head mass and likely liver metastasis
GI and oncology following, s/p liver biopsy on 04/20, pathology pending
LFTs currently downtrending with supportive care, symptomatically stable
Follow-up liver biopsy results and plan molecular studies (K-oriana, p53, SMAD, others)
Plan for ERCP/EUS with biopsy on Wednesday, full liquid diet on 04/22 with NPO at midnight
Will likely need OP staging with PET/CT, possible brain MRI
Trend LFTs and avoid hepatotoxins
# NIDDM likely related to pancreatic mass
A1c 7.2%, suspect that this is related to pancreatic mass and parenchymal destruction
Home regimen includes metformin, transition to ISS with Accu-Cheks here
# Anxiety
Continue with home Xanax as needed
DVT prophylaxis: SQ Lovenox
CODE STATUS: Full code
Disposition: Home when medically stable
DW and mother at bedside
total time spent 51 min
Anticipated Discharge: 24 - 48 hours
Subjective/Interval History
-
Date of Service: April 22, 2025
Objective Data
-
Labs:
Laboratory Results
04/22/25
05:51
WBC 6.2
Hgb 10.9 L
Hct 31.9 L
Plt Count 201
Sodium 137
Potassium 3.9
Chloride 107
Carbon Dioxide 24
BUN 7
Creatinine 0.7
Glucose 113 H
Calcium 9.2
Total Bilirubin 3.9 H
AST 265 H
ALT 736 H*
Alkaline Phosphatase 392 H
Vital Signs:
Vital Signs
Temp Pulse Resp BP Pulse Ox
36.5 C 77 16 123/78 96
04/22/25 07:25 04/22/25 07:25 04/22/25 07:25 04/22/25 07:25 04/22/25 07:25
I&O
04/21/25 04/22/25 04/23/25
06:59 06:59 06:59
Intake Total 720 / 720 1440 / 1440 1140 / 1140
Balance 720 / 720 1440 / 1440 1140 / 1140
Review of Systems
-
History Source: Patient
All other systems: Reviewed and negative
Physical Exam
-
General: Well Developed, No Apparent Distress and Comfortable
HEENT: Normocephalic, Atraumatic and Moist Mucous Membranes
Respiratory: Clear to Auscultation and Non Labored Respirations; Negative Accessory Resp Muscle Use
Cardiac: Regular Rhythm and S1/S2; Negative Murmur, Rub or Gallop
GI: Soft, Nontender, Nondistended and Normal Bowel Sounds
Musculoskeletal: No Clubbing, No Cyanosis and No Edema
Skin: Warm, Dry and Jaundice; Negative Rash
Neuro: AO x 3 and Nonfocal/Grossly Intact
Psych: Calm and Intact Judgement/Insight
Data Reviewed
-
MRI: Report Reviewed by me
Labs: Labs Reviewed by me
[2025-04-22 12:21] LABS: CA 19-9 618 U/mL (<=35)
[2025-04-22 15:05] VITALS: BP 156/94
[2025-04-22] MEDS: FLUSH (NSS) 1 FLUSH IV (15:50)
[2025-04-22] MEDS: DILAUDID 0.25 MG IV ×2 (15:50→18:04)
[2025-04-22 16:25] LABS: Glucose - Point of Care 132 mg/dl (70-99)
--- NOTE | 2025-04-22 18:09 | PTCARENOTE ---
pt verbalized desire to receive a lower dose of IV Dilaudid. Dr Dominguez made aware. Dilaudid 0.25mg IV provided per MAR.
Pt expressed that the lower dose was not enough or effective in decreasing her pain level and requested pain medication return to 0.5mg dose. Dr Dominguez contacted and pain medication changed back as per pt request. additional 0.25 mg IV dose provided
per MAR. care ongoing.
[2025-04-22] MEDS: XANAX 0.25 MG PO (21:02)
--- NOTE | 2025-04-22 21:39 | PTCARENOTE ---
Pt. asleep, at bedside does not want pt. to be woken at this time. HS blood glucose check not done at this time, will attempt later.
[2025-04-22 23:55] VITALS: BP 122/90
[2025-04-23] VITALS (12 sets, daily range): BP systolic 126–183; BP diastolic 87–112
[2025-04-23] MEDS: ZOFRAN 4 MG IV ×3 (01:18→21:52)
[2025-04-23] MEDS: DILAUDID 0.5 MG IV ×6 (01:19→21:52)
[2025-04-23] MEDS: FLUSH (NSS) 3 FLUSH IV (01:20)
[2025-04-23] MEDS: FLUSH (NSS) 2 FLUSH IV (05:39)
[2025-04-23 05:51] LABS: Glucose - Point of Care 114 mg/dl (70-99)
[2025-04-23 06:41] LABS: Hematocrit 35.8 % (37.0-47.0); Hemoglobin 12.0 g/dL (12.0-16.0); Mean Corp Hgb Conc. 33.5 g/dL (33.0-37.0); Mean Corpuscular Volume 86.5 fL (81.0-99.0); Platelet Count 225 10^3/uL (130-400); Red Cell Dist. Width 14.5 % (11.5-14.5)
[2025-04-23 07:22] LABS: ALT (SGPT) 838 U/L (0-35); AST (SGOT) 399 U/L (14-36); Albumin 4.2 g/dl (3.5-5.0); Alkaline Phosphatase 443 U/L (38-126); Blood Urea Nitrogen 8 mg/dl (7-17); Calcium 9.7 mg/dl (8.4-10.2); Carbon Dioxide 25 mmol/L (22-30); Chloride 104 mmol/L (98-107); Estimated Creatinine Clearance 79 ml/min; Glucose 119 mg/dl (70-99); Magnesium 1.7 mg/dl (1.6-2.3); Potassium 4.1 mmol/L (3.5-5.1); Sodium 138 mmol/L (135-145); Total Protein 7.6 g/dl (6.3-8.2); eGFR > 60.00
--- NOTE | 2025-04-23 08:13 | W.PN.ONC2 ---
Today's Communication / Plan
-
OP follow up will be arranged for next steps in treatment
Impression
Impression
Mid epigastric abdominal pain
Elevated LFTs
Elevated Ca 19.9, nml CEA, nml Ca 125
Bile duct dilatation with abrupt cut in region of pancreatic head
Lesion in right lobe of liver and lateral left lobe liver s/p liver bx 04/20
New onset DM
Plan
Plan
-EUS/ERCP today
-Pain control
-follow for path
Subjective/Objective
Subjective
no new complaints
pain controlled
mother at bedside during visit
Vital Signs:
Vital Signs
Temp Pulse Resp BP Pulse Ox
98.4 F 81 16 126/88 100
04/23/25 07:40 04/23/25 07:40 04/23/25 07:40 04/23/25 07:40 04/23/25 07:40
Lab Results:
Laboratory Data
WBC 6.7 10^3/uL (4.8-10.8) 04/23/25 05:50
Hgb 12.0 g/dL (12.0-16.0) 04/23/25 05:50
Plt Count 225 10^3/uL (130-400) 04/23/25 05:50
PT 13.8 Sec (11.4-14.6) 04/21/25 06:49
INR 1.03 04/21/25 06:49
eGFR > 60.00 04/23/25 05:50
Physical Exam
HEENT: Moist Mucous Membranes; No Jaundice
Pulmonary: Other (unlabored)
Neuro: Non Focal
[2025-04-23] MEDS: PROTONIX 40 MG PO (08:30)
[2025-04-23 13:00] LABS: Glucose - Point of Care 122 mg/dl (70-99)
--- NOTE | 2025-04-23 13:12 | W.PN.HOSP.TC ---
Today's Communication/Plan
-
see A/P
Assessment / Plan
Assessment / Plan
# Pancreatic mass with likely liver met
# Acute liver injury, hepatocellular dominant
Presented with ALI, epigastric pain, recent weight loss of 6 pounds in multiple week
MRI/MRCP with and without contrast showed pancreatic head mass and likely liver metastasis
GI and oncology following, s/p liver biopsy on 04/20, pathology pending
LFTs currently downtrending with supportive care, symptomatically stable
Follow-up liver biopsy results and plan for molecular studies (K-oriana, p53, SMAD, others)
For ERCP/EUS with biopsy today 04/23
Will likely need OP staging with PET/CT, possible brain MRI
Trend LFTs and avoid hepatotoxins
Onc on board, pt also has OP appointment with [facility] oncologist
# NIDDM likely related to pancreatic mass
A1c 7.2%, suspect that this is related to pancreatic mass and parenchymal destruction
Home regimen includes metformin, transition to ISS with Accu-Cheks here
# Anxiety
Continue with home Xanax as needed
DVT prophylaxis: SQ Lovenox
CODE STATUS: Full code
Disposition: Home when medically stable
DW GI
DW RN
DW and mother at bedside
total time spent 51 min
Anticipated Discharge: 24 - 48 hours
Subjective/Interval History
-
Date of Service: April 23, 2025
Objective Data
-
Labs:
Laboratory Results
04/23/25
05:50
WBC 6.7
Hgb 12.0
Hct 35.8 L
Plt Count 225
Sodium 138
Potassium 4.1
Chloride 104
Carbon Dioxide 25
BUN 8
Creatinine 0.7
Glucose 119 H
Calcium 9.7
Total Bilirubin 5.2 H
AST 399 H
ALT 838 H*
Alkaline Phosphatase 443 H
Vital Signs:
Vital Signs
Temp Pulse Resp BP Pulse Ox
36.9 C 81 16 126/88 100
04/23/25 07:40 04/23/25 07:40 04/23/25 07:40 04/23/25 07:40 04/23/25 08:00
I&O
04/22/25 04/23/25 04/24/25
06:59 06:59 06:59
Intake Total 1440 / 1440 1800 / 1800 480 / 480
Balance 1440 / 1440 1800 / 1800 480 / 480
Review of Systems
-
History Source: Patient
All other systems: Reviewed and negative
Physical Exam
-
General: Well Developed, No Apparent Distress, Comfortable and Conversant
HEENT: Normocephalic, Atraumatic and Moist Mucous Membranes
Respiratory: Clear to Auscultation and Non Labored Respirations; Negative Accessory Resp Muscle Use
Cardiac: Regular Rhythm and S1/S2; Negative Murmur, Rub or Gallop
GI: Soft, Nontender, Nondistended and Normal Bowel Sounds
Musculoskeletal: No Clubbing, No Cyanosis and No Edema
Skin: Warm, Dry and Jaundice; Negative Rash
Neuro: AO x 3 and Nonfocal/Grossly Intact
Psych: Calm and Intact Judgement/Insight
Data Reviewed
-
MRI: Report Reviewed by me
Labs: Labs Reviewed by me
[2025-04-23 16:50] LABS: Glucose - Point of Care 105 mg/dl (70-99)
[2025-04-23] MEDS: XANAX 0.25 MG PO (17:49)
--- NOTE | 2025-04-23 18:03 | PTCARENOTE ---
report given to Dilia GI farm laborer and pt transported to GI lab via stretcher at 1445.
pt returned to room 2109 at 1745. pt ambulated to bed from stretcher in hallway without incident.
VS upon arrival: 98.2-91-20-164/109, pox 98% on RA. pt tolerating sips of water and requested Xanax and pain medication. medications provided per MAR. and mother at bedside. pt and educated concerning clear liquid diet. care
ongoing.
[2025-04-23] MEDS: ROXICODONE 5 MG PO (19:51)
[2025-04-23 22:16] LABS: Glucose - Point of Care 151 mg/dl (70-99)
[2025-04-24] MEDS: DILAUDID 0.5 MG IV ×2 (02:10→06:34)
[2025-04-24 03:15] VITALS: BP 108/74
[2025-04-24 07:20] VITALS: BP 122/82
[2025-04-24 07:29] LABS: Hematocrit 34.5 % (37.0-47.0); Hemoglobin 11.6 g/dL (12.0-16.0); Mean Corp Hgb Conc. 33.6 g/dL (33.0-37.0); Mean Corpuscular Volume 85.6 fL (81.0-99.0); Platelet Count 242 10^3/uL (130-400); Red Cell Dist. Width 13.9 % (11.5-14.5)
[2025-04-24 08:05] LABS: AST (SGOT) 464 U/L (14-36); Albumin 4.4 g/dl (3.5-5.0); Alkaline Phosphatase 442 U/L (38-126); Blood Urea Nitrogen 17 mg/dl (7-17); Calcium 9.5 mg/dl (8.4-10.2); Carbon Dioxide 19 mmol/L (22-30); Chloride 105 mmol/L (98-107); Estimated Creatinine Clearance 61 ml/min; Glucose 116 mg/dl (70-99); Potassium 4.4 mmol/L (3.5-5.1); Sodium 137 mmol/L (135-145); Total Protein 7.6 g/dl (6.3-8.2); eGFR > 60.00
[2025-04-24] MEDS: NOVOLOG FLEXPEN-LOW RESISTANCE SC (08:09)
[2025-04-24 08:28] LABS: ALT (SGPT) 965 U/L (0-35)
--- NOTE | 2025-04-24 08:37 | W.PN.GI.CBS2 ---
Today's Communication / Plan
-
advance diet
Assessment / Plan
-
49-year-old female with history of choledocholithiasis status post ERCP 12 years ago at [facility], post ERCP pancreatitis and pseudocyst needing TPN at that time, history of cholecystectomy, new onset diabetes a month ago presenting with complaints of
dull epigastric discomfort intermittently in the last month but constantly in the last 3 days, no radiation. Some nausea but no vomiting. No GERD symptoms except on occasion, takes Tums as needed, no trouble swallowing. History of chronic soft
mushy/loose stool for several years, reports having colonoscopy a year ago or so at [facility] and unremarkable as per patient. She does report losing about 6 pounds in the last month. Social alcohol use, non-smoker.
In the ER, noted to have total bilirubin of 3.1, AST of 712, ALT of 3091 and alkaline phosphatase of 345
Abdominal ultrasound showing enlarged common duct to about 1.6 cm and possible mild intrahepatic biliary ductal dilation.
Subsequent noncontrast MRI/MRCP showing diffuse intrahepatic biliary ductal dilation, dilation of cystic duct remnant, common hepatic duct, superior aspect of common bile duct measuring up to 17 mm, abrupt transition of the common bile duct in the
superior aspect of the pancreatic head concerning for neoplasm. Lesion in the inferior posterior right lobe of the liver suspicious for hepatic metastatic lesion. Atrophy of the right kidney.
- Epigastric pain, elevated LFTs and MRI showing new biliary/pancreatic ductal dilation concerning for neoplasm
MRI abd with contrast 04/19/2025
IMPRESSION:
There is a 4.3 x 2.0 cm hypoenhancing mass within the pancreatic head/body which is favored to represent pancreatic malignancy (adenocarcinoma). Recommend EUS/FNA for further evaluation.
There is a 2.1 cm peripheral enhancing lesion within the inferior right hepatic lobe consistent with hepatic metastasis. There are 2 smaller additional foci of diffusion hyperintense signal within the right hepatic lobe which are concerning for
additional metastatic foci, however there are no definite lesions identified on postcontrast imaging.
Plan:
- bilirubin dropped from 5.2-2.6, other labs stable
- ok to advance to fat free diet
- f/u appt [facility] Dr. Matias 05/28 at 8:45
- oncology f/u
will sign off call with questions
Subjective
Subjective
Date of Service: April 24, 2025
Pt feels better, no pain s/p ERCP with stent
Objective
Data Reviewed
Laboratory Data:
Laboratory Results
04/24/25 06:41
04/24/25 06:41
Laboratory Results
PT 13.8 Sec (11.4-14.6) 04/21/25 06:49
INR 1.03 04/21/25 06:49
Magnesium 1.7 mg/dl (1.6-2.3) 04/23/25 05:50
Total Bilirubin 2.6 mg/dl (0.2-1.3) H 04/24/25 06:41
AST 464 U/L (14-36) H 04/24/25 06:41
ALT 965 U/L (0-35) H* 04/24/25 06:41
Alkaline Phosphatase 442 U/L (38-126) H 04/24/25 06:41
Lipase 212 U/L (23-300) 04/18/25 21:19
Vital Signs and I&O:
Vital Signs
Temp Pulse Resp BP Pulse Ox
98.3 F 81 16 108/74 95
04/24/25 03:15 04/24/25 03:15 04/24/25 03:15 04/24/25 03:15 04/24/25 03:15
I&O
04/23/25 04/24/25 04/25/25
06:59 06:59 06:59
Intake Total 1800 / 1800 530 / 530 480 / 480
Balance 1800 / 1800 530 / 530 480 / 480
Physical Exam
Physical Exam
GI: Soft and Non Tender
[2025-04-24] MEDS: XANAX 0.25 MG PO (09:10)
[2025-04-24] MEDS: PROTONIX 40 MG PO (09:10)
[2025-04-24 11:19] LABS: Glucose - Point of Care 170 mg/dl (70-99)
[2025-04-24 11:30] VITALS: BP 136/85
[2025-04-24] MEDS: NOVOLOG FLEXPEN-LOW RESISTANCE 1 UNITS SC (12:01)
--- NOTE | 2025-04-24 12:29 | W.PN.HOSP.TC ---
Today's Communication/Plan
-
see A/P
Assessment / Plan
Assessment / Plan
# Pancreatic mass with likely liver met
# Acute liver injury, hepatocellular dominant
Presented with ALI, epigastric pain, recent weight loss of 6 pounds in multiple week
MRI/MRCP with and without contrast showed pancreatic head mass and likely liver metastasis
GI and oncology following, s/p liver biopsy on 04/20, pathology pending
LFTs currently downtrending with supportive care, symptomatically stable
Follow-up liver biopsy results and plan for molecular studies (K-oriana, p53, SMAD, others)
s/p ERCP/EUS 04/23, One covered metal stent was placed into the common bile duct. One plastic stent was placed into the left hepatic duct
Follow up with Dr Matias in 4 months.
Recc OP staging with PET/CT, possible brain MRI
Trend LFTs outpt with result to PCP
Onc on board, pt also has OP appointment with [facility] oncologist
# NIDDM likely related to pancreatic mass
A1c 7.2%, suspect that this is related to pancreatic mass and parenchymal destruction
Home regimen includes metformin, cont after DC
Diabetes education for BG monitor
# Anxiety
Continue with home Xanax as needed
DVT prophylaxis: SQ Lovenox
CODE STATUS: Full code
Disposition: Home when medically stable
DW at bedside
Anticipated Discharge: Today
Subjective/Interval History
-
Date of Service: April 24, 2025
Objective Data
-
Labs:
Laboratory Results
04/24/25
06:41
WBC 11.2 H
Hgb 11.6 L
Hct 34.5 L
Plt Count 242
Sodium 137
Potassium 4.4
Chloride 105
Carbon Dioxide 19 L
BUN 17
Creatinine 0.9
Glucose 116 H
Calcium 9.5
Total Bilirubin 2.6 H
AST 464 H
ALT 965 H*
Alkaline Phosphatase 442 H
Vital Signs:
Vital Signs
Temp Pulse Resp BP Pulse Ox
36.9 C 92 18 136/85 97
04/24/25 11:30 04/24/25 11:30 04/24/25 11:30 04/24/25 11:30 04/24/25 11:30
I&O
04/23/25 04/24/25 04/25/25
06:59 06:59 06:59
Intake Total 1800 / 1800 530 / 530 720 / 720
Balance 1800 / 1800 530 / 530 720 / 720
Review of Systems
-
History Source: Patient
All other systems: Reviewed and negative
Physical Exam
-
General: Well Developed, No Apparent Distress, Comfortable and Conversant
HEENT: Normocephalic, Atraumatic and Moist Mucous Membranes
Respiratory: Clear to Auscultation and Non Labored Respirations; Negative Accessory Resp Muscle Use
Cardiac: Regular Rhythm and S1/S2; Negative Murmur, Rub or Gallop
GI: Soft, Nontender, Nondistended and Normal Bowel Sounds
Musculoskeletal: No Clubbing, No Cyanosis and No Edema
Skin: Warm, Dry and Jaundice; Negative Rash
Neuro: AO x 3 and Nonfocal/Grossly Intact
Psych: Calm and Intact Judgement/Insight
Data Reviewed
-
MRI: Report Reviewed by me
Labs: Labs Reviewed by me
--- NOTE | 2025-04-24 12:39 | W.PN.ONC ---
Today's Communication / Plan
-
--Transition to PO pain meds if able
--if tolerates, okay to d/c from oncology standpoint
--immunologic markers for branham syndrome on pathology
Impression
Impression
Stage 4 pancreatic cancer with metastatic lesions in the liver - liver biopsy confirmation
Mid epigastric abdominal pain
Elevated LFTs
Elevated Ca 19.9, nml CEA, nml Ca 125
New onset DM
EUS s/p 2 stent placements - metal one in common bile duct, plastic one in left hepatic duct
Paternal aunt history of branham syndrome and BRCA mutation
Paternal grandmother history of pancreatic cancer
Plan
Plan
--Pain control
--Plan outpatient PET scan and port placement
--f/u with Dr. Hawkins outpatient and Dr. Hayden Kramer at [facility] (has appointment for 05/04)
--Immunologic markers on pathology requested with paternal aunt having hx of branham syndrome and BRCA breast cancer
--If tolerating PO pain meds and diet, okay to d/c from oncology standpoint
Subjective/Objective
Subjective/Objective
Mid epigastric pain controlled, slight sore throat after EUS.
Vital Signs:
Vital Signs
Temp Pulse Resp BP Pulse Ox
98.5 F 92 18 136/85 97
04/24/25 11:30 04/24/25 11:30 04/24/25 11:30 04/24/25 11:30 04/24/25 11:30
Lab Results:
Laboratory Data
WBC 11.2 10^3/uL (4.8-10.8) H 04/24/25 06:41
Hgb 11.6 g/dL (12.0-16.0) L 04/24/25 06:41
Plt Count 242 10^3/uL (130-400) 04/24/25 06:41
PT 13.8 Sec (11.4-14.6) 04/21/25 06:49
INR 1.03 04/21/25 06:49
eGFR > 60.00 04/24/25 06:41
--- NOTE | 2025-04-24 13:50 | GLUCOSE ---
SITUATION:
BACKGROUND:
ASSESSMENT:
RECOMMENDATION:
--- NOTE | 2025-04-24 13:51 | PTCARENOTE ---
04/24/2025 DIABETES EDUCATION CONSULT
I met with Xin her to review diabetes management. She was diagnosed with Diabetes a month ago, was told this developed due to pancreatic cancer.
I educated on physiology of diabetes, potential for organ damage, managing with medications, monitoring BG, nutrition, activity, sleep and managing stress. I reinforced signs of hyperglycemia, hypoglycemia and hypoglycemia protocol; BS parameters
and recommended HbA1c goals.
I provided her with a [employer] Next Gen glucometer sample kit, demonstrated on use. Provider confirmed an order was placed for supplies to her local pharmacy. Reinforced that differing glucometer supplies are not interchangeable.
I provided written material including a glucose tracker, medic alert bracelet and outpatient DSME program.
Discussed normal target glucose ranges and a monitoring preprandial AM or alternating 2 hours postprandial meals.
Encouraged patient to follow up with his PCP for post d/c appointment and to monitor medication and blood glucose levels. Provided list of endocrinologists if desired, to contact insurance company to verify in network status. Patient verbalized
understanding.
--- NOTE | 2025-04-24 14:54 | W.DCSUMMARY ---
Discharge Summary
Discharge Data
Date of Admission: 04/23/25
Date of Discharge: 04/24/25
Total time spent discharging patient (in min): 40
-
Pending Results: No
Hospital Course
Principal Diagnosis:
Pancreatic mass with likely liver metastasis, associated with acute liver injury (hepatocellular dominant)
Chronic Diagnoses:�
NIDDM likely related to pancreatic mass
Anxiety
Consultations:�
Oncology
Gastroenterology
Interventional radiology
Procedures:�
Liver biopsy (path report showed metastatic adenocarcinoma from pancreatobiliary origin.
ERCP/EUS 04/23, One covered metal stent was placed into the common bile duct. One plastic stent was placed into the left hepatic duct
Clinical course:�
This is a 49-year-old female, with past medical history as stated above, who presented with abdominal pain.
Problem 1:
Pancreatic mass with likely liver metastasis, associated with acute liver injury (hepatocellular dominant).
Her MRI/MRCP with and without contrast showed pancreatic head mass and likely liver metastasis.
She underwent liver biopsy on 04/20 with pathology that came back showing metastatic adenocarcinoma from pancreatobiliary origin.
She underwent ERCP/EUS on 04/23: one covered metal stent was placed into the common bile duct, and one plastic stent was placed into the left hepatic duct.
She can follow-up with the windows security engineer Dr Matias in 4 months.
She can follow-up repeat LFT with result to her PCP.
She has an outpatient oncology appointment to discuss further care for her likely metastatic pancreatic cancer.
As for the rest of her medical problems, they were stable during her hospital stay.
Discharge Plan
-
Patient Disposition: Home (Routine Discharge)
Discharge Diagnosis/Procedures: Pancreatic mass with likely liver metastasis;
status post liver biopsy 04/20 (showed adenocarcinoma);
status post ERCP/EUS 04/23 (one covered metal stent placed into the common bile duct, one plastic stent placed into the left hepatic duct);
Acute liver injury (hepatocellular dominant);
non-insulin dependent diabetes likely related to pancreatic mass
Condition: Fair
Diet: As tolerated, Low Fat and Low Cholesterol
Activity: As tolerated
Driving Restrictions: As prior to admission
Blood Work: CMP within 1 week, result to PCP
Stand Alone Forms: Return to Work
Referrals:
Seun Moncada MD [Family Provider, Internal Medicine] - in less than 1 week
Peggy Hawkins MD [Active, Oncology]
Referral Note: call office to schedule follow up 7-10 days
Prescriptions:
New
hydromorphone [Dilaudid] 2 mg tablet
2 mg PO Q6H PRN (Reason: Pain) Qty: 7 0RF
(DME) blood-glucose meter [Accu-Chek Guide Glucose Meter] Misc
Qty: 1 0RF
Rx Instructions:
As Directed
(DME) Accu-Chek Guide test strips Strip
Qty: 200 0RF
Rx Instructions:
As Directed
(DME) lancets [Accu-Chek Softclix Lancets] Misc
Qty: 200 0RF
Rx Instructions:
As Directed
Continued
alprazolam [Xanax] 0.25 mg Tablet
0.25 mg PO BID PRN (Reason: anxiety)
Discharge Orders:
Discharge Patient (As Directed); Ordered 04/24/25
Ordered By: Melinda Dominguez
Discharge Date and Time
Print Language: LITHUANIAN
--- NOTE | 2025-04-24 15:29 | CM ---
CM reviewed chart, patient in room with and provider, will return to confirm transport home upon discharge. CM will continue to follow for all discharge planning needs.
Plan; home no needs likely
[2025-04-24] MEDS: ROXICODONE 5 MG PO (15:36)
[2025-04-24 15:52] VITALS: BP 139/97
== END 2025-04-24 15:55 | disposition home or self-care (01) | DRG 435 ==
LOC: 2 SOUTH 07:26
PROVIDERS: Internal Medicine; Internal Medicine Gastroenterology; Physician Assistant; Radiology Vascular & Interventional Radiology; Student in an Organized Health Care Education/Training Program; ADMITTING PHYSICIAN Internal Medicine; ATTENDING PHYSICIAN Internal Medicine; CONSULT PHYSICIAN Internal Medicine Gastroenterology; EMERGENCY PHYSICIAN Emergency Medicine; FAMILY PHYSICIAN Internal Medicine; OTHER PHYSICIAN Internal Medicine Hematology & Oncology
PROC: 0FB13ZX Excision of Right Lobe Liver, Percutaneous Approach, Diagnostic (ICD-10-PCS; 2025-04-20)
PROC: 0F768DZ Dilation of Left Hepatic Duct with Intraluminal Device, Via Natural or Artificial Opening Endoscopic (ICD-10-PCS; 2025-04-23)
PROC: 0F798DZ Dilation of Common Bile Duct with Intraluminal Device, Via Natural or Artificial Opening Endoscopic (ICD-10-PCS; 2025-04-23)
DX: C25.9 Malignant neoplasm of pancreas, unspecified (principal); K72.00 Acute and subacute hepatic failure without coma; K83.1 Obstruction of bile duct; C78.7 Secondary malignant neoplasm of liver and intrahepatic bile duct; K21.9 Gastro-esophageal reflux disease without esophagitis; F41.9 Anxiety disorder, unspecified; H40.059 Ocular hypertension, unspecified eye; E08.9 Diabetes mellitus due to underlying condition without complications; N26.1 Atrophy of kidney (terminal); Z79.84 Long term (current) use of oral hypoglycemic drugs; Z80.0 Family history of malignant neoplasm of digestive organs; Z90.49 Acquired absence of other specified parts of digestive tract
CPT/HCPCS: 47000; 74181; 74183; 74330; 76000; 76700; 76942; 80048; 80053; 82248; 82378; 82962; 83605; 83690; 83735; 84484; 85025; 85027; 85610; 86301; 86304; 86704; 86705; 86706; 86708; 86709; 86803; 87340; 88307; 88333; 88334; 88341; 88342; 93005; 93975; 99152; 99153; 99285; A9575; C1726; C1769; C1874; C2617

== ENCOUNTER → 2025-04-30 13:31 | Outpatient (REF) | payer OTHER, SELFPAY | LOC: PET 13:31 | PROVIDERS: ATTENDING PHYSICIAN Internal Medicine Hematology & Oncology | DX: C25.0 Malignant neoplasm of head of pancreas (principal); C78.7 Secondary malignant neoplasm of liver and intrahepatic bile duct | CPT/HCPCS: 78815; A9552 ==

== ENCOUNTER → 2025-05-07 08:25 | Outpatient (REF) | payer OTHER, SELFPAY ==
[2025-05-07 09:08] VITALS: BP 136/97; BP_SYST 81; BMI 23.9
[2025-05-07] MEDS: ANCEF 10 IV (09:50)
[2025-05-07 10:30] VITALS: BP 141/87; BP_SYST 70
[2025-05-07 10:35] VITALS: BP 126/90; BP_SYST 75
[2025-05-07 10:50] VITALS: BP 132/90; BP_SYST 72
== END ==
LOC: RADI 08:25
PROVIDERS: ATTENDING PHYSICIAN Internal Medicine Hematology & Oncology; FAMILY PHYSICIAN Internal Medicine
DX: C25.0 Malignant neoplasm of head of pancreas (principal)
CPT/HCPCS: 36561; 76937; 77001; 99152; C1788

== ENCOUNTER 2025-05-13 05:59 | Emergency (ER) | payer OTHER, SELFPAY ==
[2025-05-13 06:03] VITALS: BP 148/100
[2025-05-13 06:16] VITALS: BP 144/99
[2025-05-13 06:36] LABS: Hematocrit 34.7 % (37.0-47.0); Hemoglobin 11.9 g/dL (12.0-16.0); Mean Corp Hgb Conc. 34.3 g/dL (33.0-37.0); Mean Corpuscular Volume 84.2 fL (81.0-99.0); Platelet Count 251 10^3/uL (130-400); Red Cell Dist. Width 13.4 % (11.5-14.5)
[2025-05-13] MEDS: NSS 1000 IV (06:37)
[2025-05-13] MEDS: ZOFRAN 4 MG IV (06:42)
--- NOTE | 2025-05-13 06:44 | ED.GENMED ---
History of Present Illness
General
Chief Complaint: Abdominal Symptoms
Source: patient and spouse
Exam Limitations: none
Time Seen by Provider: 05/13/25 06:09
Nursing documentation reviewed up to this point in time: agreed with
History of Present Illness
History of Present Illness:
Patient recently diagnosed with pancreatic cancer, status post first chemotherapy infusion 5 days ago, presents to ED secondary to persistent nausea and vomiting at home despite taking medications. Denies fever or chills. Denies abdominal pain.
Denies diarrhea. Denies coughing. Denies dizziness. Patient reports generalized weakness and fatigue sensation.
Review of Systems
Review of Systems
Allergies reviewed?: Yes
All Other Systems: ROS reviewed and negative except as documented in HPI and ROS
Constitutional: Reports no symptoms; Denies fever
Respiratory: Reports no symptoms
Cardiac: Reports no symptoms
ABD/GI: Reports nausea and vomiting; Denies abdominal pain
Musculoskeletal: Reports no symptoms
Skin: Reports no symptoms
Neurological: Reports weakness
Phy Exam
Physical Exam
Physical Exam:
Physical Exam
General: mild distress, not acutely ill. afebrile
Head: nc/at. eomi
Neck: supple. normal range of motion
Heart: s1/s2 regular rate and rhythm
Lungs: no acute respiratory distress. clear bilaterally
Abdomen: normal bowel sounds. not tender.
Neuro: alert and oriented x 3. no focal neurological deficits
Skin: no rash
Psychiatric: well kept. interactive and cooperative
Extremities: no edema. no calf tenderness.
Course
Orders/Labs/Results
Orders:
Orders
05/13/25 06:10
Electrocardiogram (*1) Urgent
Reason for Study: QTc Monitoring
EKG- Treatment ONCE
0.9% Sodium Chloride 1000 ml [Nss] 1,000 ml IV BOLUS
Ondansetron Injectable [Zofran] 4 mg IV NOW STA
05/13/25 06:22
Complete Blood Count/With Diff Urgent
Comprehensive Metabolic Panel Urgent
Magnesium Urgent
Manual Differential Urgent
05/13/25 08:02
Mag Hydrox/Al Hydrox/Simeth [Maalox] 30 ml Phenobarb/Hyoscy/Atropine/Scop [] 10 ml PO NOW
Pantoprazole [Protonix IV] 40 mg .ROUTE .STK-MED ONE
Pantoprazole [Protonix IV] 40 mg IV NOW STA
05/13/25 08:04
Mag Hydrox/Al Hydrox/Simeth [Maalox] 30 ml .ROUTE .STK-MED ONE
Phenobarb/Hyoscy/Atropine/Scop [] 10 ml .ROUTE .STK-MED ONE
05/13/25 08:40
0.9% Sodium Chloride 500 ml [Nss] 500 ml IV BOLUS
Abnormal Lab Results
05/13/25
06:22
WBC 51.7 H* 10^3/uL
(4.8-10.8)
RBC 4.12 L 10^6/uL
(4.20-5.40)
Hgb 11.9 L g/dL
(12.0-16.0)
Hct 34.7 L %
(37.0-47.0)
MPV 10.8 H fL
(7.4-10.4)
Abs Neuts (Manual) 49.6 H 10^3/uL
(1.4-6.5)
Segmented Neutrophils 89 H %
(42-75)
Band Neutrophils 7 H %
(0-3)
Lymphocytes (Manual) 1 L %
(20-51)
Sodium 134 L mmol/L
(135-145)
Chloride 97 L mmol/L
(98-107)
Glucose 162 H mg/dl
(70-99)
ALT 42 H U/L
(0-35)
Alkaline Phosphatase 161 H U/L
(38-126)
05/13/25 06:22
05/13/25 06:22
Vital Signs
Initial and Last Documented VS:
Initial Vital Signs
Temp Pulse Resp BP Pulse Ox
97.9 F 104 18 148/100 93
05/13/25 06:03 05/13/25 06:03 05/13/25 06:03 05/13/25 06:03 05/13/25 06:03
Last Documented Vital Signs
Temp Pulse Resp BP Pulse Ox
97.9 F 73 10 115/78 96
05/13/25 06:03 05/13/25 09:15 05/13/25 09:15 05/13/25 09:00 05/13/25 09:15
MDM/Problems Addressed
MDM/Problems Addressed:
Patient and spouse report having received medicine on Wednesday, to boost her white blood cell count, potentially explaining for leukocytosis noted on blood work today
Patient reports improvement in symptoms after treatment. Otherwise, patient remains afebrile, hemodynamically stable, nontoxic-appearing during observation. As such, after discussion, decision made to discharge patient home. Patient will be given
prescription for Zofran and ODT as well as PPI and liquid form. Patient will also continue to take Tylenol for symptomatic relief.
*Pulse Oximetry
SaO2: 97
Oxygen Mode of Delivery: Room air
Patient hypoxic: no
*EKG
Interpreted by ED Provider?: Yes
EKG Intrepretation Date: 05/13/25
Heart Rate: 98
Rate: normal
Rhythm: sinus
[place]: normal axis
*Critical Care Note
Total Time (30-74mins, 75-104mins- exclusive of procedures): Not Applicable
ED Attending Note
-
Portions of this chart may have been created with voice recognition software.� Occasional wrong word or��sound alike� substitutions may have occurred due to the inherent limitations of voice recognition software.
Discharge Plan
Departure
Patient Disposition: Home (Routine Discharge)
Date of Disposition: 05/13/25
Time of Disposition: 10:11
Patient with high blood pressure during this ER visit?: Yes
Condition: Fair
Discharge Problem:
Dehydration
Instructions: Dehydration, Adult (DC)
Prescriptions:
New
ondansetron 4 mg Tablet,Disintegrating
4 mg PO TIDPRN PRN (Reason: nausea/vomiting) Qty: 15 0RF
famotidine 40 mg/5 mL (8 mg/mL) suspension for reconstitution
20 mg PO BID Qty: 100 0RF
No Action
alprazolam [Xanax] 0.25 mg Tablet
0.25 mg PO BID PRN (Reason: anxiety)
metformin 500 mg Tablet Extended Release 24 Hr
500 mg PO DAILY
escitalopram oxalate [Lexapro] 5 mg Tablet
5 mg PO DAILY
Referrals:
Seun Moncada MD [Family Provider, Internal Medicine]
Activity Restrictions/Additional Instructions:
As discussed, please follow-up with your primary care physician and/or oncologist for further evaluation and treatment. Please consider return to ED with worsening symptoms. Your prescriptions have been sent electronically to [facility] pharmacy in [place].
Interventions
Interventions:
*Risk Screen - Suicide Last Done: 05/13/25 06:03
*General Assessment Last Done: 05/13/25 08:25
*Neglect/Abuse Screening Last Done: 05/13/25 06:03
*ED- Fall Risk Assessment Last Done: 05/13/25 08:25
*ED COVID-19 Vaccine History Last Done: 05/13/25 08:25
TR-Dyhayi-Nhvlncnaqt Assessment Last Done: 05/13/25 06:17
Discharge Date and Time
Print Language: SLOVAK
[2025-05-13 07:00] VITALS: BP 141/93
[2025-05-13 07:03] LABS: ALT (SGPT) 42 U/L (0-35); AST (SGOT) 28 U/L (14-36); Albumin 4.7 g/dl (3.5-5.0); Alkaline Phosphatase 161 U/L (38-126); Blood Urea Nitrogen 17 mg/dl (7-17); Calcium 9.8 mg/dl (8.4-10.2); Carbon Dioxide 29 mmol/L (22-30); Chloride 97 mmol/L (98-107); Glucose 162 mg/dl (70-99); Magnesium 1.9 mg/dl (1.6-2.3); Potassium 3.7 mmol/L (3.5-5.1); Sodium 134 mmol/L (135-145); Total Protein 7.8 g/dl (6.3-8.2); eGFR > 60.00
[2025-05-13 07:15] LABS: Absolute Neutrophils -Man Diff 49.6 10^3/uL (1.4-6.5); Platelets Checked Yes
[2025-05-13 07:16] LABS: Normal RBC Morphology Yes; Total Cells Counted 100
[2025-05-13 08:00] VITALS: BP 151/101
[2025-05-13] MEDS: MAALOX 40 PO (08:11)
[2025-05-13] MEDS: PROTONIX IV 40 MG IV (08:12)
[2025-05-13] MEDS: NSS 500 IV (08:45)
[2025-05-13 09:00] VITALS: BP 115/78
== END 2025-05-13 10:20 | disposition home or self-care (01) ==
LOC: EMR 05:59
PROVIDERS: EMERGENCY PHYSICIAN Emergency Medicine; FAMILY PHYSICIAN Internal Medicine
DX: E86.0 Dehydration (principal); R03.0 Elevated blood-pressure reading, without diagnosis of hypertension; C25.9 Malignant neoplasm of pancreas, unspecified
CPT/HCPCS: 99284; 96374; 96375; 96361 ×2; 80053; 83735; 85025; 93005

== ENCOUNTER → 2025-07-02 08:59 | Outpatient (REF) | payer OTHER, SELFPAY ==
[2025-07-02 09:12] LABS: Glucose 132 mg/dl (70-99)
== END ==
LOC: PET 08:59
PROVIDERS: ATTENDING PHYSICIAN Internal Medicine Hematology & Oncology
DX: C25.0 Malignant neoplasm of head of pancreas (principal)
CPT/HCPCS: 36415; 78815; 82947; A9552